=== PATIENT | male | born 1945 | race Caucasian/White ===

== ENCOUNTER 2017-12-29 11:56 | Observation (INO) ==
--- NOTE | 2017-12-29 12:17 | Emergency Department Note ---
Disposition Clinical Impression: Chest pain Qualifiers: Chest pain type: unspecified Qualified Code(s): R07.9 - Chest pain, unspecified Disposition: Admitted As Inpatient Condition: Good Time of Disposition: 15:29 Chest Pain HPI - General Chief Complaint: ED Chest Pain Stated Complaint: Chest Pain Time Seen by Provider: 12/29/17 12:16 Source: patient Mode of arrival: ambulatory Limitations: no limitations Vital Signs Reviewed: Yes Nursing Notes Reviewed: Yes - History of Present Illness HPI Narrative: Patient is a 72-year-old male with past medical history of previous MO, stent placement 1, hypertension, hyperlipidemia, diabetes, hiatal hernia. He presents today due to chest pain. He states that he started having chest pressure yesterday afternoon, described as a pressure that radiates to his back between his scapula, associated with nausea and sweating. The pain is not worse with exertion; however, he says that this pain with associated nausea is the same pain that he felt when he had his previous MO. Denies any shortness of breath. Denies any other vomiting, diarrhea, abdominal pain. He does have a hiatal hernia but he states that this pain feels different from previous hiatal hernia pain. Severity scale (1-10): 8 - Related Data Home Medications Medication Instructions Recorded Confirmed Aspirin [Lo-Dose Aspirin EC] 81 mg PO DAILY 12/29/17 12/29/17 Atorvastatin [Lipitor] 40 mg PO HS 12/29/17 12/29/17 Carvedilol 12.5 mg PO BID 12/29/17 12/29/17 Esomeprazole Magnesium [Nexium] 40 mg PO DAILY 12/29/17 12/29/17 Fenofibrate Nanocrystallized 48 mg PO DAILY 12/29/17 12/29/17 [Tricor] Lisinopril [Zestril] 5 mg PO DAILY 12/29/17 12/29/17 Metformin HCl [Glucophage] 1,000 mg PO BID 12/29/17 12/29/17 Metoclopramide [Reglan] 10 mg PO QIDAC 12/29/17 12/29/17 SitaGLIPtin [Januvia] 100 mg PO DAILY 12/29/17 12/29/17 Tamsulosin HCl [Flomax] 0.4 mg PO DAILY 12/29/17 12/29/17 glipiZIDE [Glucotrol] 5 mg PO DAILY 12/29/17 12/29/17 Allergies Allergy/AdvReac Type Severity Reaction Status Date / Time simvastatin Allergy Rash Verified 04/07/15 17:29 All systems ED: reviewed and negative except as stated. Constitutional: Denies: fever Cardiovascular: Reports: chest pain Respiratory: Denies: dyspnea Gastrointestinal: Reports: nausea. Denies: abdominal pain, vomiting, diarrhea Musculoskeletal: Reports: back pain Integumentary: Denies: rash Neurological: Denies: headache, weakness, numbness, paresthesias Chest Pain PMH - Past Medical History Medical history: Reports: diabetes, myocardial infarction, other Surgical history: Reports: non-contributory Psychiatric history: Reports: no psych history - Social History Smoking Status: Former smoker Alcohol use: Reports: none Drug use: Reports: none Physical Exam - General Limitations: no limitations General appearance: alert, in no apparent distress - Head Head exam: atraumatic, normocephalic, normal inspection - Eye Eye exam: Present: normal appearance, PERRL, EOMI - ENT ENT exam: normal exam, normal oropharynx, mucous membranes moist - Neck Neck exam: Present: normal inspection, full ROM, trachea midline - Chest Chest inspection: Present: normal inspection, symmetric chest wall rise. Absent : tenderness, rash - Respiratory Respiratory exam: Present: normal lung sounds bilaterally - Cardiovascular Cardiovascular exam: Present: regular rate, normal rhythm, normal heart sounds - Abdominal Exam Abdominal exam: Present: soft, Non-Tender. Absent: tenderness, distention, guarding, rebound, rigidity - Extremities Exam Extremities exam: Present: normal inspection, full ROM. Absent: tenderness, pedal edema - Neurological Exam Neurological exam: Present: alert, oriented X3 - Psychiatric Psychiatric exam: Present: normal affect, normal mood - Skin Skin exam: Present: warm, dry, intact, normal color Course Course Narrative: Vitals within normal limits on my exam. Physical exam shows no reproducible chest pain upon palpation, lungs were clear to auscultation. Patient did have some mild discomfort in epigastric region that he states that this pain with palpation is not the pain that he is feeling in his chest. Patient had EKG performed that showed evidence of old left bundle branch block and no acute ST changes. Troponin was negative. Chest x-ray was negative for any acute cardio pulmonary process. Patient was given aspirin 325, nitroglycerin. He states that his pain went from a 7-8 out of 10 down to a 5 out of 10. He did not want to take any additional nitroglycerin of the patient was given fentanyl for pain control. After discussing results and risk factors with the patient, he still has continued pain, HEART score is 5, I recommended that the patient be admitted for further care and ACS rule out. He was agreeable with this plan. Chest X-Ray 12/29/17 12:26 IMPRESSION: No acute cardiopulmonary disease D/ / Ziggy Jimenez MD / Ziggy Jimenez MD Interpreting Provider: Ziggy Jimenez MD Vital Signs Temperature 97.6 F 12/29/17 12:06 Pulse Rate 77 12/29/17 12:06 Respiratory Rate 16 12/29/17 12:06 Blood Pressure 131/70 12/29/17 12:06 O2 Sat by Pulse Oximetry 96 12/29/17 12:06 Temperature 97.6 F 12/29/17 12:06 Pulse Rate 63 12/29/17 15:05 Respiratory Rate 18 12/29/17 15:05 Blood Pressure 121/73 12/29/17 15:05 O2 Sat by Pulse Oximetry 96 12/29/17 15:05 Oxygen Delivery Oxygen Delivery Nasal Cannula Chest Pain - MDM Narrative Medical decision making narrative: Vitals within normal limits on my exam. Physical exam shows no reproducible chest pain upon palpation, lungs were clear to auscultation. Patient did have some mild discomfort in epigastric region that he states that this pain with palpation is not the pain that he is feeling in his chest. Patient had EKG performed that showed evidence of old left bundle branch block and no acute ST changes. Troponin was negative. Chest x-ray was negative for any acute cardio pulmonary process. Patient was given aspirin 325, nitroglycerin. He states that his pain went from a 7-8 out of 10 down to a 5 out of 10. He did not want to take any additional nitroglycerin of the patient was given fentanyl for pain control. After discussing results and risk factors with the patient, he still has continued pain, HEART score is 5, I recommended that the patient be admitted for further care and ACS rule out. He was agreeable with this plan. - Medical Records Medical records reviewed: Yes I reviewed the patient's medical records. - Lab Data Lab results reviewed: Yes I reviewed the patient's lab results. Result diagrams: 12/29/17 12:42 Lab Results 12/29/17 Range/Units 12:42 Sodium 137 (136-145) mEq/L Potassium 3.8 (3.5-5.1) mEq/L Chloride 105 (98-107) mEq/L Carbon Dioxide 23 (23-29) mEq/L BUN 15 (8-23) mg/dL Creatinine 0.98 (0.70-1.30) mg/dL Est GFR ( Amer) > 60 (> 60) Est GFR (Non-Af Amer) > 60 (> 60) BUN/Creatinine Ratio 15 (6-26) Glucose 132 H (70-105) mg/dL Calculated Osmolality 287 (280-300) Calcium 9.5 (8.6-10.3) mg/dL Troponin I < 0.03 (< 0.04) ng/mL - Radiology Data Radiology results reviewed: Yes I reviewed the patient's radiology results. Chest X-Ray 12/29/17 12:26 IMPRESSION: No acute cardiopulmonary disease D/ / Ziggy Jimenez MD / Ziggy Jimenez MD Interpreting Provider: Ziggy Jimenez MD - EKG Data EKG attestation: Yes I reviewed and interpreted this EKG. EKG results narrative: 12/29/2017 at 11:59. Normal sinus rhythm. Left bundle branch block that is old compared to previous EKG on 01/11/2013. No acute ST elevation or depression. Left axis deviation. Rate 79, WA 169, QRS 174, QTC 461. No acute ST elevation or depression. Heart Score - Score History: Moderately Suspicious EKG: Normal Age: Greater than 65 Risk Factors: Equal/Greater than 3 risk factor or history of atherosclerotic disease Troponin: Less than normal limit HEART Score Total: 5 S.B.A.R. - S.B.A.R. Situation: Demographics, MOA Background: Presenting Complaint, Relevant PMH, Meds, & Allergies Assessment: Vital Signs, Course and respsone to treatment, Exam Concerns, Patient/Family Expectation, Pertinant Lab Results Recommendation: Barrier(s) to disposition, Recommendation based on pending studies, treatments, or consults S.B.A.R. Report Given to: Dr. Allen
[2017-12-29] MEDS ORDERED: Nitroglycerin 0.4 MG TAB.SUBL SL ONE (12:26)
[2017-12-29] MEDS ORDERED: Aspirin 81 MG TAB.CHEW PO ONE (12:26)
[2017-12-29 13:28] LABS: BUN/Creatinine Ratio 15 (6-26); Blood Urea Nitrogen 15 mg/dL (8-23); Calcium 9.5 mg/dL (8.6-10.3); Carbon Dioxide 23 mEq/L (23-29); Chloride 105 mEq/L (98-107); Glucose 132 mg/dL (70-105); Osmolality,Calculated 287 (280-300); Potassium 3.8 mEq/L (3.5-5.1); Sodium 137 mEq/L (136-145); Troponin I < 0.03 ng/mL (< 0.04); eGFR For African Americans > 60 (> 60); eGFR For Non-African Americans > 60 (> 60)
[2017-12-29] MEDS ORDERED: *HR* FentaNYL (PF) 100 MCG/2 ML VIAL IVP ONE (15:21)
[2017-12-29] MEDS ORDERED: Naloxone 0.4 MG/ML INJ IVP PRN (17:29)
[2017-12-29] MEDS ORDERED: Dextrose Gel 15 GM/37.5 ML TUBE PO PRN ×2 (17:39)
[2017-12-29] MEDS ORDERED: *HR* Dextrose 50 % in Water (Syg) 50 ML SYRINGE IVP PRN (17:39)
[2017-12-29] MEDS ORDERED: D5% in Water 1,000 ML IVC PRN (17:39)
[2017-12-29] MEDS ORDERED: GI Cocktail 40 ML EACH PO ONE (17:44)
--- NOTE | 2017-12-29 17:45 | Emergency Department Note ---
Disposition Clinical Impression: Chest pain Qualifiers: Chest pain type: unspecified Qualified Code(s): R07.9 - Chest pain, unspecified Disposition: Admitted As Inpatient Condition: Good General Adult HPI - General Chief complaint: ED Chest Pain Stated complaint: Chest Pain Time Seen by Provider: 12/29/17 12:16 Source: patient Mode of arrival: ambulatory Limitations: no limitations - History of Present Illness Pain Scale: 8 - Related Data Home Medications Medication Instructions Recorded Confirmed Aspirin [Lo-Dose Aspirin EC] 81 mg PO DAILY 12/29/17 12/29/17 Atorvastatin [Lipitor] 40 mg PO HS 12/29/17 12/29/17 Carvedilol 12.5 mg PO BID 12/29/17 12/29/17 Esomeprazole Magnesium [Nexium] 40 mg PO DAILY 12/29/17 12/29/17 Fenofibrate Nanocrystallized 48 mg PO DAILY 12/29/17 12/29/17 [Tricor] Lisinopril [Zestril] 5 mg PO DAILY 12/29/17 12/29/17 Metformin HCl [Glucophage] 1,000 mg PO BID 12/29/17 12/29/17 Metoclopramide [Reglan] 10 mg PO QIDAC 12/29/17 12/29/17 SitaGLIPtin [Januvia] 100 mg PO DAILY 12/29/17 12/29/17 Tamsulosin HCl [Flomax] 0.4 mg PO DAILY 12/29/17 12/29/17 glipiZIDE [Glucotrol] 5 mg PO DAILY 12/29/17 12/29/17 Allergies Allergy/AdvReac Type Severity Reaction Status Date / Time simvastatin Allergy Rash Verified 04/07/15 17:29 Constitutional: Denies: fever Cardiovascular: Reports: chest pain Respiratory: Denies: dyspnea Gastrointestinal: Reports: nausea. Denies: abdominal pain, vomiting, diarrhea Musculoskeletal: Reports: back pain Integumentary: Denies: rash Neurological: Denies: headache, weakness, numbness, paresthesias Past Medical History - Past Medical History Medical history: Reports: diabetes, myocardial infarction, other Surgical history: Reports: non-contributory Psychiatric history: Reports: no psych history - Social History Smoking Status: Former smoker Smokeless Tobacco Status: No Alcohol use: Reports: none Drug use: Reports: none Physical Exam - General Limitations: no limitations General appearance: alert, in no apparent distress Course Vital Signs Temperature 97.6 F 12/29/17 12:06 Pulse Rate 77 12/29/17 12:06 Respiratory Rate 16 12/29/17 12:06 Blood Pressure 131/70 12/29/17 12:06 O2 Sat by Pulse Oximetry 96 12/29/17 12:06 Temperature 97.5 F L 12/29/17 15:59 Pulse Rate 66 12/29/17 15:59 Respiratory Rate 16 12/29/17 15:59 Blood Pressure 152/81 12/29/17 15:59 O2 Sat by Pulse Oximetry 97 12/29/17 15:59 Oxygen Delivery Oxygen Delivery Nasal Cannula Medical Decision Making - Lab Data Result diagrams: 12/29/17 12:42 Lab Results 12/29/17 Range/Units 12:42 Sodium 137 (136-145) mEq/L Potassium 3.8 (3.5-5.1) mEq/L Chloride 105 (98-107) mEq/L Carbon Dioxide 23 (23-29) mEq/L BUN 15 (8-23) mg/dL Creatinine 0.98 (0.70-1.30) mg/dL Est GFR ( Amer) > 60 (> 60) Est GFR (Non-Af Amer) > 60 (> 60) BUN/Creatinine Ratio 15 (6-26) Glucose 132 H (70-105) mg/dL Calculated Osmolality 287 (280-300) Calcium 9.5 (8.6-10.3) mg/dL Troponin I < 0.03 (< 0.04) ng/mL Attestation Statement - Attestation Attestation: I examined this patient and my medical decision-making was reviewed with the Resident Physician. I agree with the documented findings, disposition and treatment plan as described except to the extent set forth below. HEART score 5. Pain improved but not resolved at the time of my eval, repeat EKG unchanged. Troponin negative in ED. Admit for obs, cardio eval.
[2017-12-29] MEDS ORDERED: Ondansetron 4 MG/2 ML VIAL IVP PRN (17:46)
--- NOTE | 2017-12-29 18:20 | Internal Med History&Physical ---
Date of Encounter: 12/29/17 Time of Encounter: 16:00 Internal Medicine - H&P: HPI Chief complaint: CP Admitted From: Emergency Dept Plans for Post Hospital Care: Home History of present illness: Mr. Patel is a 72 year old male w/PMH of diabetes controlled with oral antihyperglycemic medications, previous myocardial infarction in 2007 with one stent placed, HTN, HLD, and GERD presents from the ED with chief complaint of CP that began yesterday afternoon as constant chest pain that spread across his entire chest and radiated to his back shoulder blades and became worse today. Accompanied by N/V. Nitro x3 and 324 mg aspirin helped sx and reduced pain from 10/10 to 5/10. No alleviating or aggravating factors. Similar sx in 2007 with previous IL which required one stent. Denies recent illness, fever, chills, cough, chest congestion, SOB, changes in vision, unusual bleeding, diarrhea, constipation, palpitations, abdominal pain, numbness, tingling, dizziness, lightheadedness, presyncope, or syncope. Past Med Surg Social Fam HX - Past Medical History Source: patient, old records reviewed Medical history: diabetes, GERD, hyperlipidemia, hypertension, myocardial infarction (2007 w/ stent), other Psychiatric history: no psych history - Past Surgical History Surgical History: non-contributory - Social History Smoking Status: Former smoker Packs per day: 3 PPD - Reports quitting 30 years ago Smokeless Tobacco Status: No Alcohol use: none Drug use: none Current living situation: Home, With Family Activity Level: Independent ambulation Recent Out of Country Travel Within the Last 8 Weeks: No Exposure or Possible Exposure to Illness During Travel: No - Family History Mother Race: Family Member Ethnicity: Non- Living Status: Age at : 81 Cause of : CHF Hx Family Cardiac Disorders: Yes (CHF) Hx Family Endocrine Disorder: Yes (DM) Father Race: Family Member Ethnicity: Non- Living Status: Age at : 83 Cause of : Parkinson's complications Hx Family Neuromuscular Disorders: Yes (Parkinson's) Brother History Unknown: Yes Race: Family Member Ethnicity: Non- Living Status: Still Living Sister Race: Family Member Ethnicity: Non- Living Status: Still Living Hx Family Cardiac Disorders: Yes (CAD) Hx Family Endocrine Disorder: Yes (DM) Internal Medicine - H&P: Meds Aspirin [Lo-Dose Aspirin EC] 81 mg PO DAILY 12/29/17 [History] Atorvastatin [Lipitor] 40 mg PO HS 12/29/17 [History] Carvedilol 12.5 mg PO BID 12/29/17 [History] Esomeprazole Magnesium [Nexium] 40 mg PO DAILY 12/29/17 [History] Fenofibrate Nanocrystallized [Tricor] 48 mg PO DAILY 12/29/17 [History] Lisinopril [Zestril] 5 mg PO DAILY 12/29/17 [History] Metformin HCl [Glucophage] 1,000 mg PO BID 12/29/17 [History] Metoclopramide [Reglan] 10 mg PO QIDAC 12/29/17 [History] SitaGLIPtin [Januvia] 100 mg PO DAILY 12/29/17 [History] Tamsulosin HCl [Flomax] 0.4 mg PO DAILY 12/29/17 [History] glipiZIDE [Glucotrol] 5 mg PO DAILY 12/29/17 [History] 3 Allergy/AdvReac Type Severity Reaction Status Date / Time simvastatin Allergy Rash Verified 04/07/15 17:29 All Systems PM: A 10-system review of systems was performed and is negative for pertinent findings except as documented above in the HPI. - Constitutional Constitutional: no chills, no fever(s), no night sweats - EENT Eyes: no change in vision, no discharge, no pain, no photophobia Ears: no ear discharge, no ear pain, no tinnitus Nose, mouth and throat: no dysphagia, no nasal discharge, no neck pain, no sore throat - Breasts Breasts: as per HPI - Cardiovascular Cardiovascular ROS IM: as per HPI, chest pain, no diaphoresis, no dyspnea, no lightheadedness, no palpitations, no syncope - Respiratory Respiratory: no cough, no dyspnea, no wheezing, no excessive phlegm production - Gastrointestinal Gastrointestinal: as per HPI, nausea, vomiting, no abdominal pain, no diarrhea, no hematemesis, no hematochezia, no melena - Genitourinary Genitourinary ROS male: as per HPI - Musculoskeletal Musculoskeletal ROS IM: no numbness, no tingling - Integumentary Integumentary IM: no rash, no unusual bruising - Neurological Neurological ROS: no confusion, no convulsions, no focal weakness, no numbness, no tingling, no tremor(s) - Psychiatric Psychiatric: as per HPI - Endocrine Endocrine IM: as per HPI - Hematologic/Lymphatic Hematologic/Lymphatic: no easy bruising - Allergic/Immunologic Allergic/Immunologic: as per HPI - Constitutional Vitals: Temp Pulse Resp BP Pulse Ox 97.5 F L 66 16 152/81 97 12/29/17 15:59 12/29/17 15:59 12/29/17 15:59 12/29/17 15:59 12/29/17 15:59 General appearance: Present: cooperative, mild distress (Chest pain), A&O X 3, pleasant, obese, answers questions appropriately - Head Head exam: Present: atraumatic, normocephalic - Eye Eye exam: Present: PERRL, conjuntiva pink, sclera anicteric Pupils: Present: PERRL - ENT ENT exam: Present: normal exam - Neck Neck exam general surgery: Present: normal inspection, supple, trachea midline. Absent: lymphadenopathy - Respiratory Respiratory exam: Present: CTAB. Absent: accessory muscle use, rales, rhonchi, wheezes - Cardiovascular Cardiovascular exam: Present: RRR, +S1, +S2. Absent: diastolic murmur, gallop, rubs, systolic murmur - GI/Abdominal GI/Abdominal exam: Present: normal bowel sounds, soft, no peritoneal signs. Absent: distended, tenderness - Rectal Rectal exam: Present: deferred - Additional comments: exam deferred. - Extremities Exam Extremities exam: Present: warm, radial pulses palpable and symmetrical. Absent : calf tenderness, cyanotic, pedal edema - Back Exam Back exam: Present: normal inspection - Neurological Exam Neurological exam: Present: CN II-XII intact, oriented X3, no focal deficits. Absent: pronater drift, facial droop, speech deficit - Psychiatric Psychiatric exam: Present: normal affect, normal mood - Skin Skin exam: Present: dry, intact Internal Med - H&P Results - Labs CBC & Chem 7: 12/29/17 12:42 - Diagnostic Studies Chest x-ray Additional comments: Impressions Chest X-Ray 12/29/17 12:26 IMPRESSION: No acute cardiopulmonary disease D/ / Ziggy Jimenez MD / Ziggy Jimenez MD Interpreting Provider: Ziggy Jimenez MD - Assessment and plan (1) Chest pain Current Visit: Yes Status: Acute Assessment and plan: Acute CP that began yesterday afternoon and became worse today. Describes pain as constant across chest w/radiation to back shoulder blades accompanied by nausea and vomiting. Original pain 10/10 reduced to 5/10 after nitroglycerin 3 and 325 mg aspirin. Previous IL in 2007 w/one stent. Initial troponin <0.03. Trend x2. Lipitor 80 mg now followed by regular home dose of 40 mg daily tomorrow. Aspirin 81 mg daily starting tomorrow. NPO at midnight for a.m. stress test if troponins remain WNL. EKG today shows sinus rhythm with frequent ventricular premature complexes, marked left axis deviation, and LBBB. Cardiology consult ordered and discussed w/Dr. Suggs d/t pts. hx and LBBB and I appreciate the consult. Continuous cardiac telemetry. Supplemental O2 w/ titration and SpO2 monitoring. Continue pts. HTN and HLD medications. Pt. discussed w/Dr. Allen who agrees w/plan of care. Pt. is high risk for further morbidity and cardiac event based on previous hx of IL/stent, current sx and CP w/o resolve; and risk factors of HTN, HLD, DM, and previous long-term tobacco abuse. Observation. Qualifiers: Chest pain type: other chest pain Qualified Code(s): R07.89 - Other chest pain; R07.8 - Other chest pain (2) HTN (hypertension) Current Visit: Yes Status: Chronic Assessment and plan: Hx of chronic HTN. Monitor pt. and VS. Continue pts. Lisinopril and Carvedilol. Qualifiers: Hypertension type: essential hypertension Qualified Code(s): I10 - Essential (primary) hypertension (3) HLD (hyperlipidemia) Current Visit: Yes Status: Chronic Assessment and plan: Hx of chronic HLD. Lipid panel in a.m. labs. Continue pts. Tricor and Lipitor. Qualifiers: Hyperlipidemia type: pure hypercholesterolemia Qualified Code(s): E78.00 - Pure hypercholesterolemia, unspecified; E78.0 - Pure hypercholesterolemia (4) GERD (gastroesophageal reflux disease) Current Visit: Yes Status: Chronic Assessment and plan: Hx of chronic GERD. Hold pts. home meds and administer IVP Protonix 40 mg BID. GI cocktail once. Zofran IVP 4 mg Q6HR PRN for N/V. Qualifiers: Esophagitis presence: esophagitis presence not specified Qualified Code(s) : K21.9 - Gastro-esophageal reflux disease without esophagitis (5) Diabetes Current Visit: Yes Status: Chronic Assessment and plan: Hx of chronic diabetes controlled with oral anti-hyperglycemic medications. Will hold oral medications and administer low-dose correction insulin sliding scale with hypoglycemic protocol. A1c in a.m. labs. BG checks before meals at bedtime. Qualifiers: Diabetes mellitus type: type 2 Diabetes mellitus intermediate insulin use: without intermediate use Diabetes mellitus complication status: with unspecified complications Qualified Code(s): E11.8 - Type 2 diabetes mellitus with unspecified complications (6) DVT prophylaxis Current Visit: Yes Status: Acute Assessment and plan: Heparin 5,000 units SQ Q8HR for DVT prophylaxis. Monitor pt. for signs of bleeding. - Time Spent With Patient Total time spent is greater than 50% in coordination of care (as documented) at patient's floor/unit and/or counseling patient: Greater than 35 minutes
[2017-12-29] MEDS: Pantoprazole 40 MG VIAL IVP SCH (18:22)
--- NOTE | 2017-12-29 19:04 | Event Note ---
Date of Encounter: 12/29/17 Time of Encounter: 18:00 Discussed with KATELIN and agree with assessment and plan Patient is a 72-year-old male with past medical history CAD with prior stent in 2007 who presents to the ER due to chest pain. On physical examination, cardiovascular exam revealed regular rate and rhythm with no murmurs rubs or gallops and generally patient in mild acute distress 1. Chest pain ACS rule out with following cardiac biomarkers and monitor on telemetry Nuclear medicine stress test also ordered and cardiology was consulted due to LBBB on EKG
[2017-12-29] MEDS: traMADol 50 MG TABLET PO PRN (19:24)
[2017-12-29] MEDS: Insulin LISPRO 300 UNITS/3 ML VIAL SQ SCH (20:21)
[2017-12-29] MEDS: Nitroglycerin 0.4 MG TAB.SUBL SL PRN ×2 (22:03→22:09)
[2017-12-29] MEDS: *HR* Heparin 5,000 UNIT/ML VIAL SQ SCH (22:04)
[2017-12-30 01:16] LABS: Basophils % 0.5 %; Eosinophils # 0.1 K/mcL (0.0-0.6); Eosinophils % 1.1 %; Hematocrit 38.9 % (37.5-50.1); Hemoglobin 12.8 g/dL (12.9-16.9); Immature Granulocytes % 0.3 % (0-4); Lymphocytes # 2.1 K/mcL (0.6-4.6); Lymphocytes % 23.5 %; Mean Corpuscular HGB Conc 32.9 g/dL (31.6-35.5); Monocytes # 0.7 K/mcL (0.0-1.3); Monocytes % 7.9 %; Neutrophils # 5.8 K/mcL (1.6-8.9); Platelet Count 281 K/mcL (140-400); Red Blood Count 4.42 M/mcL (4.19-5.50); Red Cell Distribution Width 13.7 % (11.5-14.5); Segmented Neutrophils % 66.7 %
[2017-12-30 01:36] LABS: Alanine Aminotransferase 12 Units/L (7-52); Albumin 3.8 g/dL (3.5-5.7); Albumin/Globulin Ratio 1.5 (1.1-2.2); Alkaline Phosphatase 77 Units/L (34-104); Aspartate Amino Transferase 10 Units/L (13-39); BUN/Creatinine Ratio 14 (6-26); Bilirubin,Total 0.6 mg/dL (0.3-1.0); Blood Urea Nitrogen 14 mg/dL (8-23); Calcium 8.9 mg/dL (8.6-10.3); Carbon Dioxide 22 mEq/L (23-29); Chloride 102 mEq/L (98-107); Chol/HDL Ratio 3.1 (0-4.9); Cholesterol 122 mg/dL (< 200); Globulin 2.6 g/dL (2.4-3.5); Glucose 106 mg/dL (70-105); HDL Cholesterol 39 mg/dL (40-59); LDL Cholesterol,Calculated 56 mg/dL (0-99); Magnesium 1.9 mg/dL (1.6-2.6); Osmolality,Calculated 283 (280-300); Potassium 3.9 mEq/L (3.5-5.1); Sodium 136 mEq/L (136-145); Total Protein 6.4 g/dL (6.4-8.9); Triglycerides 137 mg/dL (< 150); eGFR For African Americans > 60 (> 60); eGFR For Non-African Americans > 60 (> 60)
[2017-12-30] MEDS ORDERED: Regadenoson 0.4 MG/5 ML SYRINGE IVP ONE (05:38)
[2017-12-30] MEDS: *HR* Heparin 5,000 UNIT/ML VIAL SQ SCH ×3 (06:02→20:55)
[2017-12-30] MEDS: Pantoprazole 40 MG VIAL IVP SCH ×2 (06:03→17:33)
[2017-12-30 08:40] LABS: Estimated Average Glucose 151 mg/dl; Hemoglobin A1C 6.9 %
[2017-12-30] MEDS: Insulin LISPRO 300 UNITS/3 ML VIAL SQ SCH ×4 (09:23→20:55)
[2017-12-30] MEDS: traMADol 50 MG TABLET PO PRN (09:43)
[2017-12-30] MEDS: Aspirin Enteric Coated 81 MG Tablet PO SCH (09:43)
[2017-12-30] MEDS: Fenofibrate 54 MG TABLET PO SCH (09:43)
--- NOTE | 2017-12-30 11:15 | Cardiology Consult Note ---
Date of Encounter: 12/30/17 Time of Encounter: 07:30 Assessment and Plan (1) Chest pain Current Visit: Yes Status: Acute Per cardiology: -Admitted with chest pain, occured at rest. Denies exertional symptoms. -Reports pain has been constant since Wednesday. Denies aggravating or alleviating factors. -Somewhat reproduceable with palpation. Different from previous [place] symptoms. -Troponins negative x3. -ECG with SR, LBBB (known). -Stress today without evidence of ischemia or infarct. Gated EF 41%, LV dilated. -TTE 2012 with LVEF 50%, mildly dilated LV, mild DD, mild AR, mild MR. -[facility] 2012 with patent LAD stent, 30% left circumflex, 30% RCA. -ON asa, statin, beta rich. -Will check TTE. -Will add imdur. Qualifiers: Chest pain type: other chest pain Qualified Code(s): R07.89 - Other chest pain; R07.8 - Other chest pain Discussion w patient/family: The assessment and plan as outlined above was discussed with the patient and/or family members who expressed understanding and agreement. All questions were answered. Thank you for involving us in the care of your patient. Please call with any questions. Discussed and reviewed with . History of Present Illness Consult date: 12/29/17 Requesting physician: Tera Tirado Consult reason: chest pain Chief complaint: chest pain History of present illness: Mr. Patel is a 72 year old male with a relevant past medical history of DM, HLD , CAD s/p [place] with PCI 2007, GERD, gastroperesis. Patient presented to [facility] with complaints of chest pain. Patient reports pain while sitting in car driving. Reports mid sternal pain radiation into back. Reports previous [place] symptoms of left arm pain, nausea, and vomiting. Denies left arm pain, nausea, or vomiting. Reports pain has been constant since Wednesday afternoon. Denies aggravating or alleviating factors. Reports continued chest pain. Denies increased shortness of breath or increased fatigue. Past Med Surg Social Fam HX - Past Medical History Attestation: Yes The following information was validated with the patient. Source: patient, old records reviewed Medical history: coronary artery disease, diabetes, GERD, hyperlipidemia, hypertension, myocardial infarction (2007 w/ stent), other Psychiatric history: no psych history - Past Surgical History Surgical History: non-contributory - Social History Smoking Status: Former smoker Packs per day: 3 PPD - Reports quitting 30 years ago Smokeless Tobacco Status: No Alcohol use: none Drug use: none - Family History Mother Race: Family Member Ethnicity: Non- Living Status: Age at : 81 Cause of : CHF Hx Family Cardiac Disorders: Yes (CHF) Hx Family Endocrine Disorder: Yes (DM) Father Race: Family Member Ethnicity: Non- Living Status: Age at : 83 Cause of : Parkinson's complications Hx Family Neuromuscular Disorders: Yes (Parkinson's) Brother History Unknown: Yes Race: Family Member Ethnicity: Non- Living Status: Still Living Sister Race: Family Member Ethnicity: Non- Living Status: Still Living Hx Family Cardiac Disorders: Yes (CAD) Hx Family Endocrine Disorder: Yes (DM) Medications and Allergies Aspirin [Lo-Dose Aspirin EC] 81 mg PO DAILY 12/29/17 [History] Atorvastatin [Lipitor] 40 mg PO HS 12/29/17 [History] Carvedilol 12.5 mg PO BID 12/29/17 [History] Esomeprazole Magnesium [Nexium] 40 mg PO DAILY 12/29/17 [History] Fenofibrate Nanocrystallized [Tricor] 48 mg PO DAILY 12/29/17 [History] Lisinopril [Zestril] 5 mg PO DAILY 12/29/17 [History] Metformin HCl [Glucophage] 1,000 mg PO BID 12/29/17 [History] Metoclopramide [Reglan] 10 mg PO QIDAC 12/29/17 [History] SitaGLIPtin [Januvia] 100 mg PO DAILY 12/29/17 [History] Tamsulosin HCl [Flomax] 0.4 mg PO DAILY 12/29/17 [History] glipiZIDE [Glucotrol] 5 mg PO DAILY 12/29/17 [History] 3 Allergy/AdvReac Type Severity Reaction Status Date / Time simvastatin Allergy Rash Verified 04/07/15 17:29 All Systems Review: The remainder of the systems were reviewed and are negative - Cardiovascular Cardiovascular: as per HPI, chest pain at rest Physical Examination Vital Signs, Last 4 Hours Temp Pulse Resp BP Pulse Ox 12/30/17 10:56 98.1 F 64 15 115/66 89 General: Conversant, No Apparent Distress HEENT: Atraumatic, Normocephaly, Mucus Membranes Moist Neck: No JVD, Normal carotid pulses Cardiac: Reg Rate and Rhythm, Normal S1 and S2, No Murmur Lungs: Normal Breath Sounds, No Wheeze, Rales, Rhonchi Neuro: Alert and responsive, No focal deficits noted Abdomen: Soft, Non-Tender Skin: No rashes noted on visualized skin Musculoskeletal: Other (Chest pain with palpation. ) Extremities: No Clubbing, No Cyanosis, No Edema, Normal Pulses Results 12/30/17 00:50 12/30/17 00:50 Lab Results Impressions Chest X-Ray 12/29/17 12:26 IMPRESSION: No acute cardiopulmonary disease D/ / Ziggy Jimenez MD / Ziggy Jimenez MD Interpreting Provider: Ziggy Jimenez MD Active Medications Acetaminophen (Tylenol) 650 mg PO Q6HR PRN PRN Reason: Mild Pain/Fever Stop: 06/30/18 17:30 Aspirin (Aspirin Ec) 81 mg PO DAILY [facility] Stop: 07/01/18 09:01 Last Admin: 12/30/17 09:43 Dose: 81 mg Atorvastatin Calcium (Lipitor) 40 mg PO HS [facility] Stop: 07/01/18 21:01 Carvedilol (Coreg) 12.5 mg PO BIDWM [facility] Stop: 06/30/18 19:01 Last Admin: 12/30/17 09:43 Dose: 12.5 mg Dextrose/Water (Dextrose 50% (Syg)) 25 ml IVP AD PRN PRN Reason: Hypoglycemia Stop: 06/30/18 17:40 Fenofibrate (Tricor) 54 mg PO DAILY [facility] Stop: 07/01/18 09:01 Last Admin: 12/30/17 09:43 Dose: 54 mg Glucagon (Glucagen) 1 mg IM ONCE PRN PRN Reason: Hypoglycemia Stop: 06/30/18 17:40 Glucose (Gluctose) 15 gm PO ONCE PRN PRN Reason: Hypoglycemia Stop: 06/30/18 17:40 Glucose (Gluctose) 30 gm PO ONCE PRN PRN Reason: Hypoglycemia Stop: 06/30/18 17:40 Heparin Sodium (Porcine) (Heparin) 5,000 unit SQ Q8HCO [facility] Stop: 06/30/18 22:01 Last Admin: 12/30/17 06:02 Dose: 5,000 unit Dextrose (Dextrose 5%) 1,000 mls @ 100 mls/hr IVC .Q10H PRN PRN Reason: HYPOGLYCEMIA Stop: 06/30/18 17:40 Insulin Human Lispro (Humalog) 0 units SQ TIDAC [facility] PRN Reason: Protocol Stop: 07/01/18 07:31 Last Admin: 12/30/17 09:23 Dose: Not Given Insulin Human Lispro (Humalog) 0 units SQ HS [facility] PRN Reason: Protocol Stop: 06/30/18 21:01 Last Admin: 12/29/17 20:21 Dose: Not Given Lisinopril (Zestril) 5 mg PO DAILY [facility] PRN Reason: Protocol Stop: 07/01/18 09:01 Last Admin: 12/30/17 09:42 Dose: 5 mg Naloxone HCl (Narcan) 0.4 mg IVP Q2MIN PRN PRN Reason: SEE COMMENTS Stop: 06/30/18 17:30 Nitroglycerin (Nitroglycerin) 0.4 mg SL Q5MIN PRN PRN Reason: Chest Pain Stop: 06/30/18 17:44 Last Admin: 12/29/17 22:09 Dose: 0.4 mg Ondansetron HCl (Zofran) 4 mg IVP Q6HR PRN; Protocol PRN Reason: Nausea And Vomiting Stop: 06/30/18 17:47 Last Admin: 12/29/17 18:22 Dose: 4 mg Pantoprazole Sodium (Protonix) 40 mg IVP Q12HR [facility] Stop: 06/30/18 18:01 Last Admin: 12/30/17 06:03 Dose: 40 mg Tamsulosin HCl (Flomax) 0.4 mg PO DAILY [facility] PRN Reason: Protocol Stop: 07/01/18 09:01 Last Admin: 12/30/17 09:42 Dose: 0.4 mg Tramadol HCl (Ultram) 50 mg PO TID PRN PRN Reason: Moderate Pain Stop: 06/30/18 18:02 Last Admin: 12/30/17 09:43 Dose: 50 mg Laboratory Tests 0512/29/17 12/30/17 12:42 18:28 00:50 Hgb Creatinine Troponin I < 0.03 < 0.03 < 0.03 12/30/17 12/30/17 00:50 00:50 Hgb 12.8 L Creatinine 1.02 Troponin I - Imaging and Cardiology Chest Xray: report reviewed Stress Test: report reviewed Echo: pending, report reviewed Cardiac cath: report reviewed - EKG Interpretation EKG results cardiology: personally reviewed (ECG with SR, LBBB.), other ( Telemetry reviewed with average HR previous 12 hours noted to be 62, SR. PVCs and PACs noted.) Consult Discharge Plan - Plan Referrals: Debbie May MD [Primary Care Provider] -
[2017-12-30] MEDS: Isosorbide MONOnitrate (24 HR) 30 MG TAB.ER.24H PO SCH (13:36)
--- NOTE | 2017-12-30 15:18 | Electrocardiograph Report ---
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
--- NOTE | 2017-12-30 15:18 | Electrocardiograph Report ---
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
--- NOTE | 2017-12-30 15:25 | Electrocardiograph Report ---
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
--- NOTE | 2017-12-30 19:02 | Internal Med Progress Note ---
Date of Encounter: 12/30/17 Time of Encounter: 12:00 - Assessment and plan (1) Chest pain Current Visit: Yes Status: Acute Assessment and plan: Patient has not acute chest pain which was reduced after receiving 3 nitroglycerin and aspirin he had a previous SD in 2007 with one stent. Patient did undergo a nuclear cardiac stress test which was negative for any ischemia or infarct. He was seen by cardiology recommending cardiac echo and if EF has significant changes recommending left heart catheter. Awaiting results of cardiac echo. Did discuss this with the family and patient to verbalized understanding Continuous cardiac monitoring Glycerin as needed for chest pain Continue with aspirin beta rich and statin Qualifiers: Chest pain type: other chest pain Qualified Code(s): R07.89 - Other chest pain; R07.8 - Other chest pain (2) HTN (hypertension) Current Visit: Yes Status: Chronic Assessment and plan: Presently controlled continue with lisinopril and carvedilol Qualifiers: Hypertension type: essential hypertension Qualified Code(s): I10 - Essential (primary) hypertension (3) HLD (hyperlipidemia) Current Visit: Yes Status: Chronic Assessment and plan: Continue with TriCor and Lipitor Qualifiers: Hyperlipidemia type: pure hypercholesterolemia Qualified Code(s): E78.00 - Pure hypercholesterolemia, unspecified; E78.0 - Pure hypercholesterolemia (4) GERD (gastroesophageal reflux disease) Current Visit: Yes Status: Chronic Assessment and plan: Continue with Protonix Qualifiers: Esophagitis presence: esophagitis presence not specified Qualified Code(s) : K21.9 - Gastro-esophageal reflux disease without esophagitis (5) DVT prophylaxis Current Visit: Yes Status: Acute Assessment and plan: Heparin subcutaneous (6) Diabetes Current Visit: Yes Status: Chronic Assessment and plan: Continue Accu-Cheks before meals at bedtime with sliding scale insulin hold oral medications-hemoglobin A1c 6.9 today Qualifiers: Diabetes mellitus type: type 2 Diabetes mellitus mcc insulin use: without mcc use Diabetes mellitus complication status: with unspecified complications Qualified Code(s): E11.8 - Type 2 diabetes mellitus with unspecified complications - Time Spent With Patient Total time spent is greater than 50% in coordination of care (as documented) at patient's floor/unit and/or counseling patient: - Subjective Interval history: This patient is new to me I did review medical records. I did evaluate patient at bedside. Patient presently denies any chest pain or shortness of breath. He did undergo a nuclear cardiac stress test today. Tolerated procedure well perfusion imaging was negative for ischemia or infarct. Patient was seen by cardiology recommending cardiac echo to verify EF is severe changes cardiology recommend left heart catheter. I did discuss this with the patient and family who are at bedside -verbalized understanding - Constitutional Vitals: Temp Pulse Resp BP Pulse Ox 98.4 F 59 15 108/55 89 12/30/17 15:02 12/30/17 15:02 12/30/17 15:02 12/30/17 15:02 12/30/17 15:02 General appearance: Present: cooperative, mild distress (Chest pain), A&O X 3, pleasant, obese, answers questions appropriately - Head Head exam: Present: atraumatic, normocephalic - Eye Eye exam: Present: PERRL, conjuntiva pink, sclera anicteric Pupils: Present: PERRL - Neck Neck exam general surgery: Present: supple, trachea midline. Absent: lymphadenopathy - Respiratory Respiratory exam: Present: CTAB. Absent: accessory muscle use, rales, rhonchi, wheezes - Cardiovascular Cardiovascular exam: Present: RRR, +S1, +S2. Absent: diastolic murmur, gallop, rubs, systolic murmur - GI/Abdominal GI/Abdominal exam: Present: normal bowel sounds, soft, no peritoneal signs. Absent: distended, tenderness - Extremities Exam Extremities exam: Present: warm, radial pulses palpable and symmetrical. Absent : calf tenderness, cyanotic, pedal edema - Neurological Exam Neurological exam: Present: CN II-XII intact, oriented X3, no focal deficits. Absent: pronater drift, facial droop, speech deficit - Skin Skin exam: Present: dry, intact Internal Medicine: Result - Labs CBC & Chem 7: 12/30/17 00:50 12/30/17 00:50 Labs: Short CBC 12/30/17 Range/Units 00:50 WBC 8.7 (4.3-11.1) K/mcL Hgb 12.8 L (12.9-16.9) g/dL Hct 38.9 (37.5-50.1) % Plt Count 281 (140-400) K/mcL Neutrophils # 5.8 (1.6-8.9) K/mcL BMP 12/30/17 00:50 Sodium 136 Potassium 3.9 Chloride 102 Carbon Dioxide 22 L BUN 14 Creatinine 1.02 Glucose 106 H Calcium 8.9 Cardiac Enzymes 12/29/17 12/30/17 Range/Units 18:28 00:50 Troponin I < 0.03 < 0.03 (< 0.04) ng/mL Liver Function 12/30/17 Range/Units 00:50 Total Bilirubin 0.6 (0.3-1.0) mg/dL AST 10 L (13-39) Units/L ALT 12 (7-52) Units/L Alkaline Phosphatase 77 (34-104) Units/L Albumin 3.8 (3.5-5.7) g/dL Consult Discharge Plan - Plan Referrals: Debbie May MD [Primary Care Provider] -
[2017-12-30] MEDS: Acetaminophen 325 MG TABLET PO PRN (21:00)
[2017-12-31 04:18] LABS: Basophils # 0.1 K/mcL (0.0-0.2); Basophils % 0.6 %; Eosinophils # 0.2 K/mcL (0.0-0.6); Eosinophils % 2.4 %; Hematocrit 36.5 % (37.5-50.1); Hemoglobin 12.5 g/dL (12.9-16.9); Immature Granulocytes % 0.3 % (0-4); Lymphocytes # 2.1 K/mcL (0.6-4.6); Lymphocytes % 22.4 %; Mean Corpuscular HGB Conc 34.2 g/dL (31.6-35.5); Mean Corpuscular Hemoglobin 30.4 pg (28.0-33.3); Mean Corpuscular Volume 88.8 fL (83.0-100.0); Mean Platelet Volume 10.1 fL (9.4-12.4); Monocytes # 0.7 K/mcL (0.0-1.3); Monocytes % 7.7 %; Neutrophils # 6.2 K/mcL (1.6-8.9); Platelet Count 265 K/mcL (140-400); Red Blood Count 4.11 M/mcL (4.19-5.50); Red Cell Distribution Width 13.7 % (11.5-14.5); Segmented Neutrophils % 66.6 %
[2017-12-31 04:33] LABS: Alanine Aminotransferase 10 Units/L (7-52); Albumin 3.4 g/dL (3.5-5.7); Albumin/Globulin Ratio 1.4 (1.1-2.2); Alkaline Phosphatase 73 Units/L (34-104); Aspartate Amino Transferase 9 Units/L (13-39); BUN/Creatinine Ratio 15 (6-26); Bilirubin,Total 0.4 mg/dL (0.3-1.0); Blood Urea Nitrogen 16 mg/dL (8-23); Calcium 8.7 mg/dL (8.6-10.3); Carbon Dioxide 27 mEq/L (23-29); Chloride 104 mEq/L (98-107); Globulin 2.4 g/dL (2.4-3.5); Glucose 147 mg/dL (70-105); Osmolality,Calculated 288 (280-300); Potassium 3.8 mEq/L (3.5-5.1); Sodium 137 mEq/L (136-145); Total Protein 5.8 g/dL (6.4-8.9); eGFR For African Americans > 60 (> 60); eGFR For Non-African Americans > 60 (> 60)
[2017-12-31] MEDS: Pantoprazole 40 MG VIAL IVP SCH (06:25)
[2017-12-31] MEDS: *HR* Heparin 5,000 UNIT/ML VIAL SQ SCH (06:25)
[2017-12-31] MEDS: Acetaminophen 325 MG TABLET PO PRN (08:04)
[2017-12-31] MEDS: Isosorbide MONOnitrate (24 HR) 30 MG TAB.ER.24H PO SCH (08:05)
[2017-12-31] MEDS: Aspirin Enteric Coated 81 MG Tablet PO SCH (08:05)
[2017-12-31] MEDS: Fenofibrate 54 MG TABLET PO SCH (08:05)
[2017-12-31] MEDS: Insulin LISPRO 300 UNITS/3 ML VIAL SQ SCH ×2 (08:06→11:36)
[2017-12-31 11:23] VITALS: BP 117/55
--- NOTE | 2017-12-31 12:22 | Cardiology Progress Note ---
Date of Encounter: 12/31/17 Time of Encounter: 11:30 Assessment and Plan (1) Chest pain Current Visit: Yes Status: Acute Per cardiology: -Admitted with chest pain, occured at rest. Denies exertional symptoms. -Reports pain has been constant since Wednesday. States pain somewhat worse with position change. -Somewhat reproduceable with palpation. Different from previous [place] symptoms. -Troponins negative x3. -ECG with SR, LBBB (known). -Stress without evidence of ischemia or infarct. Gated EF 41%, LV dilated. -TTE 2012 with LVEF 50%, mildly dilated LV, mild DD, mild AR, mild MR. -[facility] 2012 with patent LAD stent, 30% left circumflex, 30% RCA. -TTE with LVEF 45%, global hypokinesis. On BB and ARB. -ON asa, statin, beta rich, imdur. -Patient reports pain much improved today. Patient wants to go home. TTE with mild reduction with LV systolic function. Has ruled out for [place]. Discussed and reviewed with , cardiology will sign off and will follow in [facility] setting. FOllow up set. -Recommend patient return to ER for worsening symptoms. Patient and family states understanding. Qualifiers: Chest pain type: other chest pain Qualified Code(s): R07.89 - Other chest pain; R07.8 - Other chest pain Discussion w patient/family: The assessment and plan as outlined above was discussed with the patient and/or family members who expressed understanding and agreement. All questions were answered. Thank you for involving us in the care of your patient. Please call with any questions. Discussed and reviewed with . Subjective Principal diagnosis: chest pain Interval history: Patient reports chest pain is much improved and he is wanting to go home. Objective Vital Signs, Last 4 Hours Temp Pulse Resp BP Pulse Ox 12/31/17 11:22 98.1 F 62 17 117/55 92 General: Conversant, No Apparent Distress HEENT: Atraumatic, Normocephaly, Mucus Membranes Moist Neck: No JVD, Normal carotid pulses Cardiac: Reg Rate and Rhythm, Normal S1 and S2, No Murmur Lungs: Normal Breath Sounds, No Wheeze, Rales, Rhonchi Neuro: Alert and responsive, No focal deficits noted Abdomen: Soft, Non-Tender Skin: No rashes noted on visualized skin Musculoskeletal: No Chest Wall Tenderness Extremities: No Clubbing, No Cyanosis, No Edema, Normal Pulses Results 12/31/17 03:48 12/31/17 03:48 Lab Results Impressions Echocardiogram 12/30/17 11:10 Impressions: LVEF 45%. Mildly dilated left ventricle. Atypical septal motion consistent with bundle branch block. Mild global left ventricular systolic dysfunction. Mild left ventricular diastolic dysfunction. Normal right ventricular structure and function. Unable to estimate RVSP due to lack of TR jet. No significant valvular dysfunction. Left Ventricular Wall Motion: Rest Echo Findings The apex, apical inferior, mid inferior, basal inferior, apical anterior, mid anterior, basal anterior, apical septal, mid inferior septal, basal inferior septal, apical lateral, mid anterior lateral, basal anterior lateral, mid anterior septal, mid inferior lateral, basal anterior septal and basal inferior lateral gutierrez were hypokinetic. Findings: Study Quality * Technically adequate exam. ECG Findings * Sinus rhythm with BBB. Left Ventricle * LVEF 45%. * Mildly dilated left ventricle. * Atypical septal motion consistent with bundle branch block. * Mild global left ventricular systolic dysfunction. * Mild left ventricular diastolic dysfunction. Right Ventricle * Normal right ventricular structure and function. Left Atrium * Mildly dilated left atrium. Right Atrium * Mildly dilated right atrium. Aortic Valve * Aortic valve not well visualized. * Trace aortic regurgitation. * No aortic stenosis. Mitral Valve * Normal mitral valve structure and function. * No mitral stenosis. * Trace mitral regurgitation. Tricuspid Valve * Normal tricuspid valve structure and function. * No tricuspid regurgitation. * Unable to estimate RVSP due to lack of TR jet. Pulmonic Valve * Pulmonic valve not well visualized. Aorta * Normally sized aortic root. Pericardium * The pericardium appears normal. IVC * Normal IVC dimensions and inspiratory collapse. Pulmonary Artery * Normal visualized portions of the main pulmonary artery. Active Medications Acetaminophen (Tylenol) 650 mg PO Q6HR PRN PRN Reason: Mild Pain/Fever Stop: 06/30/18 17:30 Last Admin: 12/31/17 08:04 Dose: 650 mg Aspirin (Aspirin Ec) 81 mg PO DAILY [facility] Stop: 07/01/18 09:01 Last Admin: 12/31/17 08:05 Dose: 81 mg Atorvastatin Calcium (Lipitor) 40 mg PO HS [facility] Stop: 07/01/18 21:01 Last Admin: 12/30/17 20:56 Dose: 40 mg Carvedilol (Coreg) 12.5 mg PO BIDWM [facility] Stop: 06/30/18 19:01 Last Admin: 12/31/17 08:06 Dose: 12.5 mg Dextrose/Water (Dextrose 50% (Syg)) 25 ml IVP AD PRN PRN Reason: Hypoglycemia Stop: 06/30/18 17:40 Fenofibrate (Tricor) 54 mg PO DAILY [facility] Stop: 07/01/18 09:01 Last Admin: 12/31/17 08:05 Dose: 54 mg Glucagon (Glucagen) 1 mg IM ONCE PRN PRN Reason: Hypoglycemia Stop: 06/30/18 17:40 Glucose (Gluctose) 15 gm PO ONCE PRN PRN Reason: Hypoglycemia Stop: 06/30/18 17:40 Glucose (Gluctose) 30 gm PO ONCE PRN PRN Reason: Hypoglycemia Stop: 06/30/18 17:40 Heparin Sodium (Porcine) (Heparin) 5,000 unit SQ Q8HCO [facility] Stop: 06/30/18 22:01 Last Admin: 12/31/17 06:25 Dose: 5,000 unit Dextrose (Dextrose 5%) 1,000 mls @ 100 mls/hr IVC .Q10H PRN PRN Reason: HYPOGLYCEMIA Stop: 06/30/18 17:40 Insulin Human Lispro (Humalog) 0 units SQ TIDAC [facility] PRN Reason: Protocol Stop: 07/01/18 07:31 Last Admin: 12/31/17 11:36 Dose: 2 units Insulin Human Lispro (Humalog) 0 units SQ HS [facility] PRN Reason: Protocol Stop: 06/30/18 21:01 Last Admin: 12/30/17 20:55 Dose: Not Given Isosorbide Mononitrate (Imdur) 30 mg PO DAILY [facility] Stop: 07/01/18 12:01 Last Admin: 12/31/17 08:05 Dose: 30 mg Lisinopril (Zestril) 5 mg PO DAILY [facility] PRN Reason: Protocol Stop: 07/01/18 09:01 Last Admin: 12/31/17 08:05 Dose: 5 mg Naloxone HCl (Narcan) 0.4 mg IVP Q2MIN PRN PRN Reason: SEE COMMENTS Stop: 06/30/18 17:30 Nitroglycerin (Nitroglycerin) 0.4 mg SL Q5MIN PRN PRN Reason: Chest Pain Stop: 06/30/18 17:44 Last Admin: 12/29/17 22:09 Dose: 0.4 mg Ondansetron HCl (Zofran) 4 mg IVP Q6HR PRN; Protocol PRN Reason: Nausea And Vomiting Stop: 06/30/18 17:47 Last Admin: 12/29/17 18:22 Dose: 4 mg Pantoprazole Sodium (Protonix) 40 mg IVP Q12HR [facility] Stop: 06/30/18 18:01 Last Admin: 12/31/17 06:25 Dose: 40 mg Tamsulosin HCl (Flomax) 0.4 mg PO DAILY [facility] PRN Reason: Protocol Stop: 07/01/18 09:01 Last Admin: 12/31/17 08:05 Dose: 0.4 mg Tramadol HCl (Ultram) 50 mg PO TID PRN PRN Reason: Moderate Pain Stop: 06/30/18 18:02 Last Admin: 12/30/17 09:43 Dose: 50 mg Laboratory Tests 12/29/17 12/29/17 12/30/17 12:42 18:28 00:50 Hgb Creatinine Troponin I < 0.03 < 0.03 < 0.03 12/31/17 12/31/17 03:48 03:48 Hgb 12.5 L Creatinine 1.09 Troponin I - Imaging and Cardiology Chest Xray: report reviewed Stress Test: report reviewed Echo: report reviewed - EKG Interpretation EKG results cardiology: other (Telemetry reviewed with average HR previous 12 hours noted to be 59, SB. PVCS and PACS noted.) Consult Discharge Plan - Plan Referrals: Debbie May MD [Primary Care Provider] -
--- NOTE | 2017-12-31 12:38 | Discharge Summary ---
- NOTES TO OUTPATIENT PROVIDER Notes to Outpatient Provider: Patient underwent cardiac stress test without evidence of ischemia infarct he was started on Imdur per cardiology Orders not resulted at time of discharge: Pending orders 12/30/17 06:00 NM zoya perf SPECT multi [NM] Routine 01/01/18 04:00 Complete Blood Count [HEME] AM 0400 Comprehensive Metabolic Panel AM 0400 01/02/18 04:00 Complete Blood Count [HEME] AM 0400 Comprehensive Metabolic Panel AM 0400 Date of Encounter: 12/31/17 Time of Encounter: 12:36 - Discharge Diagnosis (1) Chest pain Priority: Primary Status: Acute Qualifiers: Chest pain type: other chest pain Qualified Code(s): R07.89 - Other chest pain; R07.8 - Other chest pain (2) HTN (hypertension) Priority: Secondary Status: Chronic Qualifiers: Hypertension type: essential hypertension Qualified Code(s): I10 - Essential (primary) hypertension (3) HLD (hyperlipidemia) Priority: Secondary Status: Chronic Qualifiers: Hyperlipidemia type: pure hypercholesterolemia Qualified Code(s): E78.00 - Pure hypercholesterolemia, unspecified; E78.0 - Pure hypercholesterolemia (4) GERD (gastroesophageal reflux disease) Priority: Secondary Status: Chronic Qualifiers: Esophagitis presence: esophagitis presence not specified Qualified Code(s) : K21.9 - Gastro-esophageal reflux disease without esophagitis (5) Diabetes Priority: Secondary Status: Chronic Qualifiers: Diabetes mellitus type: type 2 Diabetes mellitus intermediate insulin use: without rn long term care use Diabetes mellitus complication status: with unspecified complications Qualified Code(s): E11.8 - Type 2 diabetes mellitus with unspecified complications Hospital course: Mr. Patel is a 72 year old male past medical history diabetes hyperlipidemia CAD status post MO with PCI 2008 GERD gastroparesis. Patient presented to [facility] ER with complaints of chest pain while he was driving in his car. Was midsternal radiating into his back. He did have previous MO with symptoms of left arm pain nausea and vomiting. He denies any left arm pain nausea or vomiting on this presentation. Reports pain has been constant since Wednesday afternoon denies any aggravating or relieving factors. Troponin was negative 3 EKG with sinus rhythm with a known left bundle branch block TTE 2012 with LVEF 50% mildly dilated LV -repeat echo completed LVEF 45% with mildly dilated LV [facility] 2012 with pain LAD stent 30% left circumflex 30% RCA. He underwent a nuclear cardiac stress test which was negative for any ischemia or infarct. He was seen by cardiology and placed on Imdur. He continues to experience dull aching chest pressure however suspect this is musculoskeletal since it is reproducible it appears to be worse with movement. Did discuss with cardiology-cardiology okay to discharge and follow-up as outpatient. Advised patient to follow-up with cardiology and continue with Imdur-also advised patient to follow-up with PCP. Patient verbalized understanding he is hemodynamically stable ready for discharge. Discharge discussed with: patient Time spent discussing smoking cessation with patient: 3 to 10 minutes - Time Spent with Patient Total time spent providing and/or coordinating discharge services: - Discharge Medications Prescriptions: Isosorbide MONOnitrate (24 HR) [Imdur] 30 mg PO DAILY #30 tab.er.24h Home Medications: Aspirin [Lo-Dose Aspirin EC] 81 mg PO DAILY 12/29/17 [History] Atorvastatin [Lipitor] 40 mg PO HS 12/29/17 [History] Carvedilol 12.5 mg PO BID 12/29/17 [History] Esomeprazole Magnesium [Nexium] 40 mg PO DAILY 12/29/17 [History] Fenofibrate Nanocrystallized [Tricor] 48 mg PO DAILY 12/29/17 [History] Lisinopril [Zestril] 5 mg PO DAILY 12/29/17 [History] Metformin HCl [Glucophage] 1,000 mg PO BID 12/29/17 [History] Metoclopramide [Reglan] 10 mg PO QIDAC 12/29/17 [History] SitaGLIPtin [Januvia] 100 mg PO DAILY 12/29/17 [History] Tamsulosin HCl [Flomax] 0.4 mg PO DAILY 12/29/17 [History] glipiZIDE [Glucotrol] 5 mg PO DAILY 12/29/17 [History] Isosorbide MONOnitrate (24 HR) [Imdur] 30 mg PO DAILY #30 tab.er.24h 12/31/17 [ Rx] Allergies/Adverse Reactions: 3 Allergy/AdvReac Type Severity Reaction Status Date / Time simvastatin Allergy Rash Verified 04/07/15 17:29 Date of admission: 12/29/17 14:50 Primary care physician: Debbie May Consults: 12/29/17 17:36 Consult to Pharmacist Hospital [CONS] Routine Reason for SW Consult: Please assess pt. for possible home needs for post- discharge planning. 12/29/17 18:29 Consult to Cardiology [CONS] Routine Comment: Consulting Provider: Cardiology Joselyn Reason for Consult: CP w/LBBB on EKG Call Completed: Yes Discharging clinician: Saira Vargas Anticipated date of discharge: 12/31/17 - Constitutional Vitals: Temp Pulse Resp BP Pulse Ox 98.1 F 62 17 117/55 92 12/31/17 11:22 12/31/17 11:22 12/31/17 11:22 12/31/17 11:22 12/31/17 11:22 General appearance: Present: cooperative, mild distress (Chest pain), A&O X 3, pleasant, obese, answers questions appropriately - Head Head exam: Present: atraumatic, normocephalic - Eye Eye exam: Present: PERRL, conjuntiva pink, sclera anicteric Pupils: Present: PERRL - Neck Neck exam general surgery: Present: supple, trachea midline. Absent: lymphadenopathy - Respiratory Respiratory exam: Present: CTAB. Absent: accessory muscle use, rales, rhonchi, wheezes - Cardiovascular Cardiovascular exam: Present: RRR, +S1, +S2. Absent: diastolic murmur, gallop, rubs, systolic murmur - GI/Abdominal GI/Abdominal exam: Present: normal bowel sounds, soft, no peritoneal signs. Absent: distended, tenderness - Extremities Exam Extremities exam: Present: warm, radial pulses palpable and symmetrical. Absent : calf tenderness, cyanotic, pedal edema - Neurological Exam Neurological exam: Present: CN II-XII intact, oriented X3, no focal deficits. Absent: pronater drift, facial droop, speech deficit - Skin Skin exam: Present: dry, intact - Patient Status Disposition: Home, Self-Care Condition: Good Functional capacity at discharge: independent ambulation Overall status at discharge: patient is back to baseline - Discharge Instructions Follow Up With: Debbie May MD [Primary Care Provider] - Anthony Suggs DO [Partnered Physician] - - Diet and Activity Activity: increase activity as tolerated Diet: low fat, low cholesterol
== END 2017-12-31 13:52 | disposition home or self-care (01) ==
LOC: EMEROO 11:56 → 3BNU 11:56
PROVIDERS: ADMIT Nurse Practitioner Family; ATTEND Nurse Practitioner Family

== ENCOUNTER 2018-01-16 13:35 | Inpatient (IN) ==
[2018-01-16] MEDS ORDERED: Aspirin 81 MG TAB.CHEW PO ONE (13:43)
--- NOTE | 2018-01-16 13:44 | Emergency Department Note ---
Disposition Clinical Impression: Chest pain Qualifiers: Chest pain type: other chest pain Qualified Code(s): R07.89 - Other chest pain ; R07.8 - Other chest pain Disposition: Admitted As Inpatient Condition: Good Forms: ED Satisfaction Letter Chest Pain HPI - General Chief Complaint: ED Chest Pain Stated Complaint: chest pain Time Seen by Provider: 01/16/18 13:43 Vital Signs Reviewed: Yes Nursing Notes Reviewed: Yes - History of Present Illness HPI Narrative: 72-year-old male presents emergency department with concern for chest pain. Patient states that this been intermittent over the last 2 weeks since he has been discharged from the hospital. 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 Patient admits to some nausea with it but no vomiting. Patient denies whether his exertional or not. Severity scale (1-10): 8 - Related Data Home Medications Medication Instructions Recorded Confirmed Aspirin [Lo-Dose Aspirin EC] 81 mg PO DAILY 12/29/17 12/29/17 Atorvastatin [Lipitor] 40 mg PO HS 12/29/17 12/29/17 Carvedilol 12.5 mg PO BID 12/29/17 12/29/17 Esomeprazole Magnesium [Nexium] 40 mg PO DAILY 12/29/17 12/29/17 Fenofibrate Nanocrystallized 48 mg PO DAILY 12/29/17 12/29/17 [Tricor] Lisinopril [Zestril] 5 mg PO DAILY 12/29/17 12/29/17 Metformin HCl [Glucophage] 1,000 mg PO BID 12/29/17 12/29/17 Metoclopramide [Reglan] 10 mg PO QIDAC 12/29/17 12/29/17 Tamsulosin HCl [Flomax] 0.4 mg PO DAILY 12/29/17 12/29/17 glipiZIDE [Glucotrol] 5 mg PO DAILY 12/29/17 12/29/17 Sitagliptin Phosphate [Januvia] 50 mg PO DAILY 01/16/18 01/16/18 Previous Rx's Medication Instructions Recorded Isosorbide MONOnitrate (24 HR) 30 mg PO DAILY #30 tab.er.24h 12/31/17 [Imdur] Allergies Allergy/AdvReac Type Severity Reaction Status Date / Time simvastatin Allergy Rash Verified 04/07/15 17:29 All systems ED: reviewed and negative except as stated. Review of Systems: As Per HPI Constitutional: Denies: fever Cardiovascular: Reports: chest pain Respiratory: Denies: cough, dyspnea, wheezes Gastrointestinal: Reports: nausea. Denies: abdominal pain, vomiting Genitourinary: Denies: urgency, dysuria Musculoskeletal: Denies: back pain Integumentary: Denies: rash Neurological: Denies: headache, weakness, numbness, paresthesias Endocrine: Denies: fatigue Chest Pain PMH - Past Medical History Medical history: Reports: coronary artery disease, diabetes, GERD, hyperlipidemia, hypertension, myocardial infarction (2007 stent), other Surgical history: Reports: non-contributory Psychiatric history: Reports: no psych history - Social History Smoking Status: Former smoker Alcohol use: Reports: none Drug use: Reports: none Physical Exam - Head Head exam: atraumatic, normocephalic - Eye Eye exam: Present: EOMI - ENT ENT exam: normal exam, normal oropharynx - Neck Neck exam: Present: full ROM, trachea midline. Absent: tenderness, meningismus - Chest Chest inspection: Present: normal inspection, symmetric chest wall rise - Respiratory Respiratory exam: Present: normal lung sounds bilaterally. Absent: respiratory distress, accessory muscle use - Cardiovascular Cardiovascular exam: Present: regular rate, normal rhythm, normal heart sounds - Abdominal Exam Abdominal exam: Present: soft, Non-Tender. Absent: distention, guarding, rebound - Extremities Exam Extremities exam: Absent: pedal edema - Neurological Exam Neurological exam: Present: alert, oriented X3, CN II-XII intact - Psychiatric Psychiatric exam: Present: normal affect, normal mood Course Vital Signs Temperature 98.3 F 01/16/18 13:36 Pulse Rate 92 01/16/18 13:36 Respiratory Rate 16 01/16/18 13:36 Blood Pressure 126/65 01/16/18 13:36 O2 Sat by Pulse Oximetry 96 01/16/18 13:36 Temperature 98.3 F 01/16/18 13:42 Pulse Rate 73 01/16/18 14:50 Respiratory Rate 12 01/16/18 14:50 Blood Pressure 124/69 01/16/18 14:50 O2 Sat by Pulse Oximetry 95 01/16/18 14:50 Oxygen Delivery Oxygen Delivery Room Air Chest Pain - MDM Narrative Medical decision making narrative: 71-year-old male presents emergency department with concern for chest pain. Patient states that this same type of chest pain he had with his first NV, but not as severe in quality. Patient this was have heart catheterization this . Patient was given 3 sibling one nitroglycerin and this did not result chest pain. IV fentanyl and Percocet did help and patient's stated chest pain was 4 out of 10. EKG did not reveal any new ischemic changes. Troponin was negative. Patient was given aspirin here in the emergency department. Patient shows mildly elevated creatinine, but it appears to be within the same as recent visits. He was given a 500 mL bolus of normal saline. Because of patient's continued chest pain after discharge, and knowledge of patient needing heart catheterization, believe it is best for patient to be admitted for further observation and evaluation for his chest pain. Patient and are at bedside. They agree with plan. Spoke with the hospitalist Dr. Lorenzo who agreed to admit the patient. Patient hemodynamically stable reporting chest pain that had been significantly reduced a 4 out of 10 in severity. Not in any acute distress. - Lab Data Result diagrams: 01/16/18 13:53 01/16/18 13:53 Lab Results 01/16/18 01/16/18 01/16/18 Range/Units 13:43 13:53 13:53 WBC 9.3 (4.3-11.1) K/mcL RBC 4.68 (4.19-5.50) M/mcL Hgb 14.3 (12.9-16.9) g/dL Hct 42.3 (37.5-50.1) % MCV 90.4 (83.0-100.0) fL MCH 30.6 (28.0-33.3) pg MCHC 33.8 (31.6-35.5) g/dL RDW 13.5 (11.5-14.5) % Plt Count 334 (140-400) K/mcL MPV 9.9 (9.4-12.4) fL Immature Gran % 0.2 (0-4) % Seg Neutrophils % 73.7 % Lymphocytes % 17.4 % Monocytes % 5.8 % Eosinophils % 1.9 % Basophils % 1.0 % Neutrophils # 6.8 (1.6-8.9) K/mcL Lymphocytes # 1.6 (0.6-4.6) K/mcL Monocytes # 0.5 (0.0-1.3) K/mcL Eosinophils # 0.2 (0.0-0.6) K/mcL Basophils # 0.1 (0.0-0.2) K/mcL Sodium 135 L (136-145) mEq/L Potassium 3.7 (3.5-5.1) mEq/L Chloride 102 (98-107) mEq/L Carbon Dioxide 23 (23-29) mEq/L BUN 14 (8-23) mg/dL Creatinine 1.31 H (0.70-1.30) mg/dL Est GFR ( Amer) > 60 (> 60) Est GFR (Non-Af Amer) 54 L (> 60) BUN/Creatinine Ratio 11 (6-26) Glucose 197 H (70-105) mg/dL Calculated Osmolality 286 (280-300) Calcium 9.6 (8.6-10.3) mg/dL Troponin I < 0.03 (< 0.04) ng/mL B-Natriuretic Peptide 115 H (Less than 100) pg/mL Heart Score - Score History: Moderately Suspicious EKG: Normal Age: Greater than 65 Risk Factors: Equal/Greater than 3 risk factor or history of atherosclerotic disease Troponin: Less than normal limit HEART Score Total: 5
[2018-01-16] MEDS: Nitroglycerin 0.4 MG TAB.SUBL SL PRN ×3 (14:03→14:13)
[2018-01-16 14:07] LABS: Basophils # 0.1 K/mcL (0.0-0.2); Eosinophils # 0.2 K/mcL (0.0-0.6); Eosinophils % 1.9 %; Hematocrit 42.3 % (37.5-50.1); Hemoglobin 14.3 g/dL (12.9-16.9); Immature Granulocytes % 0.2 % (0-4); Lymphocytes # 1.6 K/mcL (0.6-4.6); Lymphocytes % 17.4 %; Mean Corpuscular HGB Conc 33.8 g/dL (31.6-35.5); Mean Corpuscular Hemoglobin 30.6 pg (28.0-33.3); Mean Corpuscular Volume 90.4 fL (83.0-100.0); Mean Platelet Volume 9.9 fL (9.4-12.4); Monocytes # 0.5 K/mcL (0.0-1.3); Monocytes % 5.8 %; Neutrophils # 6.8 K/mcL (1.6-8.9); Platelet Count 334 K/mcL (140-400); Red Blood Count 4.68 M/mcL (4.19-5.50); Red Cell Distribution Width 13.5 % (11.5-14.5); Segmented Neutrophils % 73.7 %
[2018-01-16] MEDS ORDERED: Ondansetron 4 MG/2 ML VIAL IVP ONE (14:07)
[2018-01-16] MEDS ORDERED: *HR* FentaNYL (PF) 100 MCG/2 ML VIAL IVP ONE (14:20)
[2018-01-16] MEDS ORDERED: *HR* OxyCODONE/APAP 5/325 TABLET PO ONE (14:20)
[2018-01-16 14:25] LABS: BUN/Creatinine Ratio 11 (6-26); Blood Urea Nitrogen 14 mg/dL (8-23); Calcium 9.6 mg/dL (8.6-10.3); Carbon Dioxide 23 mEq/L (23-29); Chloride 102 mEq/L (98-107); Glucose 197 mg/dL (70-105); Osmolality,Calculated 286 (280-300); Potassium 3.7 mEq/L (3.5-5.1); Sodium 135 mEq/L (136-145); eGFR For African Americans > 60 (> 60); eGFR For Non-African Americans 54 (> 60)
[2018-01-16 14:26] LABS: Troponin I < 0.03 ng/mL (< 0.04)
[2018-01-16] MEDS ORDERED: 0.9 % Sodium Chloride 500 ML IVC ONE (14:42)
--- NOTE | 2018-01-16 15:23 | Emergency Department Note ---
Disposition Clinical Impression: Chest pain, rule out acute myocardial infarction Disposition: Admitted As Inpatient Condition: Good Forms: ED Satisfaction Letter Chest Pain HPI - General Chief Complaint: ED Chest Pain Stated Complaint: chest pain Time Seen by Provider: 01/16/18 13:43 Source: patient Limitations: no limitations Vital Signs Reviewed: Yes Nursing Notes Reviewed: Yes - History of Present Illness Severity scale (1-10): 8 - Related Data Home Medications Medication Instructions Recorded Confirmed Aspirin [Lo-Dose Aspirin EC] 81 mg PO DAILY 12/29/17 01/16/18 Atorvastatin [Lipitor] 40 mg PO HS 12/29/17 01/16/18 Carvedilol 12.5 mg PO BID 12/29/17 01/16/18 Esomeprazole Magnesium [Nexium] 40 mg PO DAILY 12/29/17 01/16/18 Fenofibrate Nanocrystallized 48 mg PO DAILY 12/29/17 01/16/18 [Tricor] Lisinopril [Zestril] 5 mg PO DAILY 12/29/17 01/16/18 Metformin HCl [Glucophage] 1,000 mg PO BID 12/29/17 01/16/18 Metoclopramide [Reglan] 10 mg PO QIDAC 12/29/17 01/16/18 Tamsulosin HCl [Flomax] 0.4 mg PO DAILY 12/29/17 01/16/18 glipiZIDE [Glucotrol] 5 mg PO DAILY 12/29/17 01/16/18 Sitagliptin Phosphate [Januvia] 50 mg PO DAILY 01/16/18 01/16/18 Previous Rx's Medication Instructions Recorded Isosorbide MONOnitrate (24 HR) 30 mg PO DAILY #30 tab.er.24h 12/31/17 [Imdur] Allergies Allergy/AdvReac Type Severity Reaction Status Date / Time simvastatin Allergy Rash Verified 04/07/15 17:29 Constitutional: Denies: fever Cardiovascular: Reports: chest pain Respiratory: Denies: cough, dyspnea, wheezes Gastrointestinal: Reports: nausea. Denies: abdominal pain, vomiting Genitourinary: Denies: urgency, dysuria Musculoskeletal: Denies: back pain Integumentary: Denies: rash Neurological: Denies: headache, weakness, numbness, paresthesias Endocrine: Denies: fatigue Chest Pain PMH - Past Medical History Medical history: Reports: coronary artery disease, diabetes, GERD, hyperlipidemia, hypertension, myocardial infarction (2007 w/ stent), other Surgical history: Reports: non-contributory Psychiatric history: Reports: no psych history - Social History Smoking Status: Former smoker Alcohol use: Reports: none Drug use: Reports: none Physical Exam - General Limitations: no limitations General appearance: alert Course Vital Signs Temperature 98.3 F 01/16/18 13:36 Pulse Rate 92 01/16/18 13:36 Respiratory Rate 16 01/16/18 13:36 Blood Pressure 126/65 01/16/18 13:36 O2 Sat by Pulse Oximetry 96 01/16/18 13:36 Temperature 98.3 F 01/16/18 13:42 Pulse Rate 73 01/16/18 14:50 Respiratory Rate 12 01/16/18 14:50 Blood Pressure 124/69 01/16/18 14:50 O2 Sat by Pulse Oximetry 95 01/16/18 14:50 Oxygen Delivery Oxygen Delivery Room Air Chest Pain - Lab Data Result diagrams: 01/16/18 13:53 01/16/18 13:53 Lab Results 01/16/18 01/16/18 01/16/18 Range/Units 13:43 13:53 13:53 WBC 9.3 (4.3-11.1) K/mcL RBC 4.68 (4.19-5.50) M/mcL Hgb 14.3 (12.9-16.9) g/dL Hct 42.3 (37.5-50.1) % MCV 90.4 (83.0-100.0) fL MCH 30.6 (28.0-33.3) pg MCHC 33.8 (31.6-35.5) g/dL RDW 13.5 (11.5-14.5) % Plt Count 334 (140-400) K/mcL MPV 9.9 (9.4-12.4) fL Immature Gran % 0.2 (0-4) % Seg Neutrophils % 73.7 % Lymphocytes % 17.4 % Monocytes % 5.8 % Eosinophils % 1.9 % Basophils % 1.0 % Neutrophils # 6.8 (1.6-8.9) K/mcL Lymphocytes # 1.6 (0.6-4.6) K/mcL Monocytes # 0.5 (0.0-1.3) K/mcL Eosinophils # 0.2 (0.0-0.6) K/mcL Basophils # 0.1 (0.0-0.2) K/mcL Sodium 135 L (136-145) mEq/L Potassium 3.7 (3.5-5.1) mEq/L Chloride 102 (98-107) mEq/L Carbon Dioxide 23 (23-29) mEq/L BUN 14 (8-23) mg/dL Creatinine 1.31 H (0.70-1.30) mg/dL Est GFR ( Amer) > 60 (> 60) Est GFR (Non-Af Amer) 54 L (> 60) BUN/Creatinine Ratio 11 (6-26) Glucose 197 H (70-105) mg/dL Calculated Osmolality 286 (280-300) Calcium 9.6 (8.6-10.3) mg/dL Troponin I < 0.03 (< 0.04) ng/mL B-Natriuretic Peptide 115 H (Less than 100) pg/mL Attestation Statement - Attestation Attestation: I, Hua Cee, examined this patient and my medical decision-making was reviewed with the STAFF PSYCHIATRIST/PA/Advanced Practice Nurse/Resident Physician. I agree with the documented findings, disposition and treatment plan as described except to the extent set forth below. 72-year-old male presents emergency Department with concerns of chest pain. Patient states he was evaluated for chest pain within the past month, he was discharged and followed up with his unemployment claims adjudicator, Dr. Suggs. Because the patient had continued chest pain after his discharge, he had a heart catheterization scheduled for 4 days from now. Patient reports having acute onset of worsening of his chest pain this morning which was associated with lightheadedness, diaphoresis and nausea. Patient has a history of previous ID which required stenting. Initial troponin negative. EKG showed normal sinus rhythm with a rate of 80 with left bundle-branch block without evidence of STEMI. Initial troponin negative. Chest x-ray did not show significant abnormality. Patient will be admitted to the hospitalist for further care and evaluation.
[2018-01-16] MEDS ORDERED: Acetaminophen 325 MG TABLET PO PRN (15:47)
[2018-01-16] MEDS ORDERED: traMADol 50 MG TABLET PO PRN (15:47)
[2018-01-16] MEDS ORDERED: Naloxone 0.4 MG/ML INJ IVP PRN (15:47)
[2018-01-16] MEDS ORDERED: D5% in Water 1,000 ML IVC PRN (15:51)
[2018-01-16] MEDS ORDERED: *HR* Dextrose 50 % in Water (Syg) 50 ML SYRINGE IVP PRN (15:51)
[2018-01-16] MEDS ORDERED: Dextrose Gel 15 GM/37.5 ML TUBE PO PRN ×2 (15:51)
--- NOTE | 2018-01-16 15:55 | Internal Med History&Physical ---
Addendum entered and electronically signed by Luz Maria Corcoran 01/16/18 16:38: MORTEZA - Likely prerenal, repeat renal function panel in the a.m. Addendum entered and electronically signed by Luz Maria Corcoran 01/16/18 16:34: Original Note: <Luz Maria Corcoran - Last Filed: 01/16/18 15:52> Date of Encounter: 01/16/18 Time of Encounter: 15:52 Internal Medicine - H&P: HPI Admitted From: Home Plans for Post Hospital Care: Home History of present illness: Mr. Patel is a 72-year-old male with past medical history of CAD status post stent placement, hypertension, hyperlipidemia, and diabetes presented with concerns of chest pain. 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 Suggs. Because the patient had continued chest pain after his discharge, he had a heart catheterization scheduled for 4 days from now. Patient reports having acute onset of worsening of his chest pain this morning which was associated with lightheadedness, diaphoresis and nausea. Patient has a history of previous CA which required stenting. Initial troponin negative. EKG showed normal sinus rhythm with a rate of 80 with left bundle-branch block without evidence of STEMI. Initial troponin negative. Chest x-ray did not show significant abnormality. Patient will be admitted to the hospitalist for further care and evaluation. Past Med Surg Social Fam HX - Past Medical History Medical history: coronary artery disease, diabetes, GERD, hyperlipidemia, hypertension, myocardial infarction (2007 stent), other Psychiatric history: no psych history - Past Surgical History Surgical History: non-contributory - Social History Smoking Status: Former smoker Smokeless Tobacco Status: No Alcohol use: none Drug use: none - Family History Mother Family Member Ethnicity: Non- Living Status: Hx Family Cardiac Disorders: Yes (CHF) Hx Family Endocrine Disorder: Yes (DM) Father Family Member Ethnicity: Non- Living Status: Hx Family Neuromuscular Disorders: Yes (Parkinson's) Brother Family Member Ethnicity: Non- Living Status: Still Living Sister Family Member Ethnicity: Non- Living Status: Still Living Hx Family Cardiac Disorders: Yes (CAD) Hx Family Endocrine Disorder: Yes (DM) Internal Medicine - H&P: Meds Aspirin [Lo-Dose Aspirin EC] 81 mg PO DAILY 12/29/17 [History] Atorvastatin [Lipitor] 40 mg PO HS 12/29/17 [History] Carvedilol 12.5 mg PO BID 12/29/17 [History] Esomeprazole Magnesium [Nexium] 40 mg PO DAILY 12/29/17 [History] Fenofibrate Nanocrystallized [Tricor] 48 mg PO DAILY 12/29/17 [History] Lisinopril [Zestril] 5 mg PO DAILY 12/29/17 [History] Metformin HCl [Glucophage] 1,000 mg PO BID 12/29/17 [History] Metoclopramide [Reglan] 10 mg PO QIDAC 12/29/17 [History] Tamsulosin HCl [Flomax] 0.4 mg PO DAILY 12/29/17 [History] glipiZIDE [Glucotrol] 5 mg PO DAILY 12/29/17 [History] Isosorbide MONOnitrate (24 HR) [Imdur] 30 mg PO DAILY #30 tab.er.24h 12/31/17 [ Rx] Sitagliptin Phosphate [Januvia] 50 mg PO DAILY 01/16/18 [History] 3 Allergy/AdvReac Type Severity Reaction Status Date / Time simvastatin Allergy Rash Verified 04/07/15 17:29 All Systems PM: A 10-system review of systems was performed and is negative for pertinent findings except as documented above in the HPI. Review of systems: REVIEW OF SYSTEMS: CONSTITUTIONAL: No weight loss, fever, chills, weakness or fatigue. HEENT: Eyes: No visual loss, blurred vision, double vision or yellow sclerae. Ears, Nose, Throat: No hearing loss, sneezing, congestion, runny nose or sore throat. SKIN: No rash or itching. CARDIOVASCULAR: see HPI. RESPIRATORY: No shortness of breath, cough or sputum. GASTROINTESTINAL: No anorexia, nausea, vomiting or diarrhea. No abdominal pain or blood. GENITOURINARY: No dysuria, urgency, or frequency. NEUROLOGICAL: No headache, dizziness, syncope, paralysis, ataxia, numbness or tingling in the extremities. No change in bowel or bladder control. MUSCULOSKELETAL: No muscle, back pain, joint pain or stiffness. HEMATOLOGIC: No anemia, bleeding or bruising. LYMPHATICS: No enlarged nodes. No history of splenectomy. PSYCHIATRIC: No history of depression or anxiety. ENDOCRINOLOGIC: No reports of sweating, cold or heat intolerance. No polyuria or polydipsia. - Constitutional Vitals: Temp Pulse Resp BP Pulse Ox 98.3 F 73 16 109/60 95 01/16/18 13:42 01/16/18 14:50 01/16/18 15:44 01/16/18 15:44 01/16/18 14:50 General appearance: Present: A&O X 3 Exam: PHYSICAL EXAMINATION: GENERAL APPEARANCE: The patient is alert, oriented and in no acute distress. HEENT: Head is normocephalic. The sinuses are nontender. Pupils are equal and reactive. The nares are patent. Oropharynx clear without lesions. NECK: Supple without lymphadenopathy. HEART: Regular rate and rhythm. LUNGS: No crackles or wheezes are heard. ABDOMEN: Soft, nontender, nondistended with good bowel sounds heard. Inguinal area is normal. EXTREMITIES: Without cyanosis, clubbing or edema. NEUROLOGICAL: Gross nonfocal. SKIN: Warm and dry without any rash. Internal Med - H&P Results - Labs CBC & Chem 7: 01/16/18 13:53 01/16/18 13:53 - Assessment and plan (1) Chest pain, rule out acute myocardial infarction Current Visit: Yes Status: Acute Assessment and plan: 72-year-old male with past medical history of CAD status post stent placement, recent hospitalization for cardiac workup presented with acute worsening of chronic chest pain. He was hospitalized here about 2 weeks ago for chest pain, cardiac workup including stress test and echocardiogram were not inclusive, and was scheduled at left heart catheter about 4 days from now. He presented with worsening chest pain for the last 2 days. - Last stress test on 12/30/2017 was nonconclusive because of underlying left bundle branch block. Echocardiogram revealed EF 40-45%, mild diastolic/ systolic dysfunction. - History of CAD with stent placement about 10 years ago, patient was on aspirin and Plavix, but currently only on aspirin. - Chest pain was typical per patient description. First troponin is negative, EKG is not diagnostic for CA due to underlying LBBB. - Ideology consult, may need urgent left heart catheter due to worsening symptoms. (2) CAD (coronary artery disease) Current Visit: No Status: Chronic Assessment and plan: Same as above. Qualifiers: Coronary Disease-Associated Artery/Lesion type: [place] artery [place] vs. transplanted heart: [place] heart Associated angina: with stable angina Qualified Code(s): I25.118 - Atherosclerotic heart disease of [place] coronary artery with other forms of angina pectoris (3) HTN (hypertension) Current Visit: No Status: Chronic Assessment and plan: BP controlled, continue home medications. Qualifiers: Hypertension type: essential hypertension Qualified Code(s): I10 - Essential (primary) hypertension (4) HLD (hyperlipidemia) Current Visit: No Status: Chronic Assessment and plan: Continue statins. Qualifiers: Hyperlipidemia type: pure hypercholesterolemia Qualified Code(s): E78.00 - Pure hypercholesterolemia, unspecified; E78.0 - Pure hypercholesterolemia (5) GERD (gastroesophageal reflux disease) Current Visit: No Status: Chronic Assessment and plan: Continue home medication. Qualifiers: Esophagitis presence: esophagitis presence not specified Qualified Code(s) : K21.9 - Gastro-esophageal reflux disease without esophagitis (6) Diabetes Current Visit: No Status: Chronic Assessment and plan: Hold all medication for diabetes, started patient on insulin sliding scale. Qualifiers: Diabetes mellitus type: type 2 Diabetes mellitus group home insulin use: without group home use Diabetes mellitus complication status: with unspecified complications Qualified Code(s): E11.8 - Type 2 diabetes mellitus with unspecified complications - Time Spent With Patient Total time spent is greater than 50% in coordination of care (as documented) at patient's floor/unit and/or counseling patient: Greater than 35 minutes <Carmel Ambrocio - Last Filed: 01/16/18 19:14> Date of Encounter: 01/16/18 Internal Medicine - H&P: HPI History of present illness: Mr. Patel is a 72 year old male All Systems PM: A 10-system review of systems was performed and is negative for pertinent findings except as documented above in the HPI. - Constitutional Vitals: Temp Pulse Resp BP Pulse Ox 98.2 F 70 15 127/76 95 01/16/18 19:03 01/16/18 19:03 01/16/18 19:03 01/16/18 19:03 01/16/18 19:03 Internal Med - H&P Results - Labs CBC & Chem 7: 01/16/18 13:53 01/16/18 13:53 - Attending Attestation I saw and examined this patient independently, and my medical decision making was reviewed with the JAVASCRIPT APPLICATION DEVELOPER/PA on 2017. I agree with the documented findings , assessment and treatment plan as described in the H&P. Patient is doing well, chest pain is soft. Vitas is stable. Cardiology was called and discussed by Nilo. Family is in the room, all questions are answered - Time Spent With Patient Total time spent is greater than 50% in coordination of care (as documented) at patient's floor/unit and/or counseling patient:
[2018-01-16] MEDS: *HR* Heparin 5,000 UNIT/ML VIAL SQ SCH (16:56)
[2018-01-16] MEDS: Insulin LISPRO 300 UNITS/3 ML VIAL SQ SCH ×2 (17:15→20:44)
[2018-01-17] MEDS: *HR* Heparin 5,000 UNIT/ML VIAL SQ SCH ×4 (00:16→23:23)
[2018-01-17 02:30] LABS: Basophils # 0.1 K/mcL (0.0-0.2); Basophils % 0.9 %; Eosinophils # 0.2 K/mcL (0.0-0.6); Eosinophils % 2.4 %; Hematocrit 36.9 % (37.5-50.1); Immature Granulocytes % 0.2 % (0-4); Lymphocytes # 2.4 K/mcL (0.6-4.6); Lymphocytes % 28.1 %; Mean Corpuscular HGB Conc 33.3 g/dL (31.6-35.5); Mean Corpuscular Hemoglobin 30.2 pg (28.0-33.3); Mean Corpuscular Volume 90.7 fL (83.0-100.0); Mean Platelet Volume 9.7 fL (9.4-12.4); Monocytes # 0.7 K/mcL (0.0-1.3); Monocytes % 7.6 %; Neutrophils # 5.3 K/mcL (1.6-8.9); Platelet Count 286 K/mcL (140-400); Red Blood Count 4.07 M/mcL (4.19-5.50); Red Cell Distribution Width 13.6 % (11.5-14.5); Segmented Neutrophils % 60.8 %
[2018-01-17 02:31] LABS: Hemoglobin 12.3 g/dL (12.9-16.9)
[2018-01-17 02:45] LABS: Troponin I < 0.03 ng/mL (< 0.04)
[2018-01-17 02:49] LABS: BUN/Creatinine Ratio 11 (6-26); Blood Urea Nitrogen 13 mg/dL (8-23); Calcium 8.8 mg/dL (8.6-10.3); Carbon Dioxide 23 mEq/L (23-29); Chloride 106 mEq/L (98-107); Glucose 155 mg/dL (70-105); Osmolality,Calculated 287 (280-300); Potassium 3.9 mEq/L (3.5-5.1); Sodium 137 mEq/L (136-145); eGFR For African Americans > 60 (> 60); eGFR For Non-African Americans 58 (> 60)
[2018-01-17] MEDS: Nitroglycerin 0.4 MG TAB.SUBL SL PRN (08:01)
[2018-01-17] MEDS: Insulin LISPRO 300 UNITS/3 ML VIAL SQ SCH ×4 (08:02→21:13)
[2018-01-17] MEDS: Aspirin Enteric Coated 81 MG Tablet PO SCH (08:02)
[2018-01-17] MEDS: Fenofibrate 54 MG TABLET PO SCH (08:03)
[2018-01-17] MEDS ORDERED: Isosorbide MONOnitrate (24 HR) 30 MG TAB.ER.24H PO SCH (09:00)
--- NOTE | 2018-01-17 09:26 | Cardiology Consult Note ---
<Hudson Kothari - Last Filed: 01/17/18 10:30> Date of Encounter: 01/17/18 Time of Encounter: 09:25 Assessment and Plan (1) Chest pain, rule out acute myocardial infarction Current Visit: Yes Status: Acute Per Cardiology: Troponins negative 3. Patient already arranged for outpatient catheterization. Seen today having symptoms of chest pain 4 out of 10. ECG showed left bundle branch block, comparable to baseline. Discussed and reviewed with Dr. Good, we will proceed with increased dose of long-acting nitrate and plan for catheterization tomorrow. Nasal cannula oxygen applied. Patient verbalized understanding and agreed to plan. All questions answered. Further recommendations after catheterization. (2) CAD (coronary artery disease) Current Visit: No Status: Chronic Per Cardiology: Known history of CAD with previous stenting and last catheterization in December 2012 with patent proximal LAD stent, mid circumflex 30%, proximal RCA 30%, and mid RCA 20% lesions. Had negative nuclear stress test December 2017. On aspirin, statin, beta rich, long-acting nitrate, and ELÍAS inhibitor. Qualifiers: Coronary Disease-Associated Artery/Lesion type: [place] artery [place] vs. transplanted heart: [place] heart Associated angina: with stable angina Qualified Code(s): I25.118 - Atherosclerotic heart disease of [place] coronary artery with other forms of angina pectoris Discussion w patient/family: The assessment and plan as outlined above was discussed with the patient who expressed understanding and agreement. All questions were answered. Thank you for involving us in the care of your patient. Please call with any questions. History of Present Illness Consult date: 01/17/18 Requesting physician: Luz Maria Corcoran Consult reason: CP Chief complaint: CP History of present illness: Mr. Patel is a 72 year old male with a relevant past medical history of CAD, left bundle branch block, DM 2, hypertension, hyperlipidemia. Recently seen by Dr. Suggs in outpatient setting with pending outpatient catheterization with recurrent chest pain despite negative stress test results. Cardiology consult for chest pain evaluation and catheterization. Patient reports he awakened yesterday morning with more chest pain symptoms. Came to the ER for evaluation. Patient seen this morning with chest pain which she describes as heaviness currently about a 4 out of 10. He reports left anterior chest wall with radiation to his left scapular region. He reports nitroglycerin pills with no relief. He reports recently started on long-acting nitrate with no improvement in symptoms. He denies any active bleeding or blood loss. Denies any other concerns or complaints today. Past Med Surg Social Fam HX - Past Medical History Attestation: Yes The following information was validated with the patient. Source: patient, old records reviewed Medical history: coronary artery disease, diabetes, GERD, hyperlipidemia, hypertension, myocardial infarction, other Psychiatric history: no psych history - Past Surgical History Surgical History: non-contributory - Social History Smoking Status: Former smoker Smokeless Tobacco Status: No Alcohol use: none Drug use: none - Family History Mother Family Member Ethnicity: Non- Living Status: Hx Family Cardiac Disorders: Yes (CHF) Hx Family Endocrine Disorder: Yes (DM) Father Family Member Ethnicity: Non- Living Status: Hx Family Neuromuscular Disorders: Yes (Parkinson's) Brother Family Member Ethnicity: Non- Living Status: Still Living Sister Family Member Ethnicity: Non- Living Status: Still Living Hx Family Cardiac Disorders: Yes (CAD) Hx Family Endocrine Disorder: Yes (DM) Medications and Allergies Aspirin [Lo-Dose Aspirin EC] 81 mg PO DAILY 12/29/17 [History] Atorvastatin [Lipitor] 40 mg PO HS 12/29/17 [History] Carvedilol 12.5 mg PO BID 12/29/17 [History] Esomeprazole Magnesium [Nexium] 40 mg PO DAILY 12/29/17 [History] Fenofibrate Nanocrystallized [Tricor] 48 mg PO DAILY 12/29/17 [History] Lisinopril [Zestril] 5 mg PO DAILY 12/29/17 [History] Metformin HCl [Glucophage] 1,000 mg PO BID 12/29/17 [History] Metoclopramide [Reglan] 10 mg PO QIDAC 12/29/17 [History] Tamsulosin HCl [Flomax] 0.4 mg PO DAILY 12/29/17 [History] glipiZIDE [Glucotrol] 5 mg PO DAILY 12/29/17 [History] Isosorbide MONOnitrate (24 HR) [Imdur] 30 mg PO DAILY #30 tab.er.24h 12/31/17 [ Rx] Sitagliptin Phosphate [Januvia] 50 mg PO DAILY 01/16/18 [History] 3 Allergy/AdvReac Type Severity Reaction Status Date / Time simvastatin Allergy Rash Verified 04/07/15 17:29 All Systems Review: The remainder of the systems were reviewed and are negative - Cardiovascular Cardiovascular: as per HPI, chest pain at rest Physical Examination Vital Signs, Last 4 Hours Temp Pulse Resp BP Pulse Ox 01/17/18 09:08 124/67 01/17/18 07:34 97.8 F 65 15 145/76 96 General: Conversant, No Apparent Distress HEENT: Atraumatic, Normocephaly Cardiac: Reg Rate and Rhythm, Normal S1 and S2, No Murmur Lungs: Normal Breath Sounds, No Wheeze, Rales, Rhonchi Neuro: Alert and responsive, No focal deficits noted Skin: No rashes noted on visualized skin Extremities: No Edema, Normal Pulses Results 01/17/18 02:08 01/17/18 02:08 Lab Results Laboratory Tests 01/16/18 01/16/18 01/16/18 13:43 13:53 19:39 Creatinine 1.31 H Est GFR (Non-Af Amer) 54 L Troponin I < 0.03 < 0.03 B-Natriuretic Peptide 115 H 01/17/18 02:08 Creatinine 1.23 Est GFR (Non-Af Amer) 58 L Troponin I < 0.03 B-Natriuretic Peptide ITS Impressions Chest X-Ray 01/16/18 13:43 IMPRESSION: No acute process. D/ / Dionisio Hurst MD / Dionisio Hurst MD Interpreting Provider: Dionisio Hurst MD Active Medications Acetaminophen (Tylenol) 650 mg PO Q6HR PRN PRN Reason: Mild Pain/Fever Stop: 07/18/18 15:48 Aspirin (Aspirin Ec) 81 mg PO DAILY BOOGIE Stop: 07/19/18 09:01 Last Admin: 01/17/18 08:02 Dose: 81 mg Atorvastatin Calcium (Lipitor) 40 mg PO HS BOOGIE Stop: 07/18/18 21:01 Last Admin: 01/16/18 20:37 Dose: 40 mg Carvedilol (Coreg) 12.5 mg PO BID BOOGIE Stop: 07/18/18 21:01 Last Admin: 01/17/18 08:02 Dose: 12.5 mg Dextrose/Water (Dextrose 50% (Syg)) 25 ml IVP AD PRN PRN Reason: Hypoglycemia Stop: 07/18/18 15:52 Fenofibrate (Tricor) 54 mg PO DAILY [facility] Stop: 07/19/18 09:01 Last Admin: 01/17/18 08:03 Dose: 54 mg Glucagon (Glucagen) 1 mg IM ONCE PRN PRN Reason: Hypoglycemia Stop: 07/18/18 15:52 Glucose (Gluctose) 15 gm PO ONCE PRN PRN Reason: Hypoglycemia Stop: 07/18/18 15:52 Glucose (Gluctose) 30 gm PO ONCE PRN PRN Reason: Hypoglycemia Stop: 07/18/18 15:52 Heparin Sodium (Porcine) (Heparin) 5,000 unit SQ Q8HR [facility] Stop: 07/18/18 16:01 Last Admin: 01/17/18 08:04 Dose: 5,000 unit Dextrose (Dextrose 5%) 1,000 mls @ 100 mls/hr IVC .Q10H PRN PRN Reason: HYPOGLYCEMIA Stop: 07/18/18 15:52 Insulin Human Lispro (Humalog) 0 units SQ HS BOOGIE PRN Reason: Protocol Stop: 07/18/18 21:01 Last Admin: 01/16/18 20:44 Dose: Not Given Insulin Human Lispro (Humalog) 0 units SQ TIDAC BOOGIE PRN Reason: Protocol Stop: 07/18/18 16:31 Last Admin: 01/17/18 08:02 Dose: Not Given Isosorbide Mononitrate (Imdur) 30 mg PO DAILY [facility] Stop: 07/19/18 09:01 Last Admin: 01/17/18 08:02 Dose: 30 mg Lisinopril (Zestril) 5 mg PO DAILY [facility] PRN Reason: Protocol Stop: 07/19/18 09:01 Last Admin: 01/17/18 08:03 Dose: 5 mg Naloxone HCl (Narcan) 0.4 mg IVP Q2MIN PRN PRN Reason: SEE COMMENTS Stop: 07/18/18 15:48 Nitroglycerin (Nitroglycerin) 0.4 mg SL Q5MIN PRN PRN Reason: Chest Pain Stop: 07/18/18 13:56 Last Admin: 01/17/18 08:01 Dose: 0.4 mg Omeprazole (Prilosec) 20 mg PO DAILY [facility] Stop: 07/19/18 09:01 Last Admin: 01/17/18 08:03 Dose: 20 mg Ondansetron HCl (Zofran) 4 mg IVP Q6HR PRN; Protocol PRN Reason: Nausea And Vomiting Stop: 07/18/18 15:52 Tamsulosin HCl (Flomax) 0.4 mg PO DAILY BOOGIE PRN Reason: Protocol Stop: 07/19/18 09:01 Last Admin: 01/17/18 08:03 Dose: 0.4 mg Tramadol HCl (Ultram) 50 mg PO Q6HR PRN PRN Reason: Moderate Pain Stop: 07/18/18 15:48 Last Admin: 01/17/18 08:01 Dose: 50 mg - Imaging and Cardiology Stress Test: report reviewed Echo: report reviewed Cardiac cath: report reviewed - EKG Interpretation EKG results cardiology: personally reviewed, sinus rhythm, left bundle branch block (Known history of left bundle branch block) Consult Discharge Plan - Plan Referrals: Debbie May MD [Primary Care Provider] - <Cassi Good - Last Filed: 01/18/18 11:19> Date of Encounter: 01/18/18 - Attending Attestation I have personally performed a face to face evaluation on this patient. I have reviewed and agree with the care plan. History and Exam by me shows: 72 YOM with known CAD s/p PCI of the proximal LAD, non obstructive CAD otherwise. Recent stress negative for ischemia with preserved EF but patient continues to have atypical chest pain. [facility] R/B/A discussed with patient and he agrees to proceed. . Assessment and Plan Discussion w patient/family: The assessment and plan as outlined above was discussed with the patient and/or family members who expressed understanding and agreement. All questions were answered. Thank you for involving us in the care of your patient. Please call with any questions. History of Present Illness History of present illness: Mr. Patel is a 72 year old male All Systems Review: The remainder of the systems were reviewed and are negative Physical Examination Vital Signs, Last 4 Hours Temp Pulse Resp BP Pulse Ox 01/18/18 10:56 97.7 F 70 16 111/66 94 Results 01/17/18 02:08 01/17/18 02:08
[2018-01-17] MEDS ORDERED: Isosorbide MONOnitrate (24 HR) 30 MG TAB.ER.24H PO ONE (09:41)
--- NOTE | 2018-01-17 11:23 | Internal Med Progress Note ---
Date of Encounter: 01/17/18 Time of Encounter: 11:23 - Assessment and plan (1) Chest pain, rule out acute myocardial infarction Current Visit: Yes Status: Acute Assessment and plan: Seen by cardiology- he undergo LHC in AM NPO after midnight Nitroglycerin as need for CO Imdur increased per cardiology (2) HTN (hypertension) Current Visit: No Status: Chronic Assessment and plan: BP controlled, continue home medications. Qualifiers: Hypertension type: essential hypertension Qualified Code(s): I10 - Essential (primary) hypertension (3) HLD (hyperlipidemia) Current Visit: No Status: Chronic Assessment and plan: Continue statins. Qualifiers: Hyperlipidemia type: pure hypercholesterolemia Qualified Code(s): E78.00 - Pure hypercholesterolemia, unspecified; E78.0 - Pure hypercholesterolemia (4) GERD (gastroesophageal reflux disease) Current Visit: No Status: Chronic Assessment and plan: Continue home medication. Qualifiers: Esophagitis presence: esophagitis presence not specified Qualified Code(s) : K21.9 - Gastro-esophageal reflux disease without esophagitis (5) Diabetes Current Visit: No Status: Chronic Assessment and plan: Hold all medication for diabetes, started patient on insulin sliding scale. 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 transplanted heart: [place] heart Associated angina: with stable angina Qualified Code(s): I25.118 - Atherosclerotic heart disease of [place] coronary artery with other forms of angina pectoris - Time Spent With Patient Total time spent is greater than 50% in coordination of care (as documented) at patient's floor/unit and/or counseling patient: - Subjective Interval history: Patient seen and examined at bedside. He does have some chest pain described as heaviness 4/10, EKG obtained has LLB which is on old EKG. Seen by cardiology anticipate LHC in am. Discussed with patient who verbalizes understanding. - Constitutional Vitals: Temp Pulse Resp BP Pulse Ox 98.3 F 64 15 104/62 93 01/17/18 11:09 01/17/18 11:09 01/17/18 11:09 01/17/18 11:09 01/17/18 11:09 General appearance: Present: A&O X 3 - Head Head exam: Present: atraumatic, normocephalic - Eye Eye exam: Present: PERRL, conjuntiva pink, sclera anicteric Pupils: Present: PERRL - Neck Neck exam general surgery: Present: supple, trachea midline. Absent: lymphadenopathy - Respiratory Respiratory exam: Present: CTAB. Absent: accessory muscle use, rales, rhonchi, wheezes - Cardiovascular Cardiovascular exam: Present: RRR, +S1, +S2. Absent: diastolic murmur, gallop, rubs, systolic murmur - GI/Abdominal GI/Abdominal exam: Present: normal bowel sounds, soft, no peritoneal signs. Absent: distended, tenderness - Extremities Exam Extremities exam: Present: warm, radial pulses palpable and symmetrical. Absent : calf tenderness, cyanotic, pedal edema - Neurological Exam Neurological exam: Present: CN II-XII intact, oriented X3, no focal deficits. Absent: pronater drift, facial droop, speech deficit - Skin Skin exam: Present: dry, intact Internal Medicine: Result - Labs CBC & Chem 7: 01/17/18 02:08 01/17/18 02:08 Labs: Short CBC 01/17/18 Range/Units 02:08 WBC 8.7 (4.3-11.1) K/mcL Hgb 12.3 L D (12.9-16.9) g/dL Hct 36.9 L (37.5-50.1) % Plt Count 286 (140-400) K/mcL Neutrophils # 5.3 (1.6-8.9) K/mcL BMP 01/17/18 02:08 Sodium 137 Potassium 3.9 Chloride 106 Carbon Dioxide 23 BUN 13 Creatinine 1.23 Glucose 155 H Calcium 8.8 Cardiac Enzymes 01/16/18 01/17/18 Range/Units 19:39 02:08 Troponin I < 0.03 < 0.03 (< 0.04) ng/mL Consult Discharge Plan - Plan Referrals: Debbie May MD [Primary Care Provider] -
[2018-01-18] MEDS ORDERED: *HR* Morphine 2 MG/ML SYRINGE IVP ONE ×2 (06:57→10:15)
[2018-01-18] MEDS: Insulin LISPRO 300 UNITS/3 ML VIAL SQ SCH ×4 (07:18→20:17)
[2018-01-18] MEDS: *HR* Heparin 5,000 UNIT/ML VIAL SQ SCH ×3 (07:41→22:56)
[2018-01-18] MEDS: Fenofibrate 54 MG TABLET PO SCH (07:41)
[2018-01-18] MEDS: Isosorbide MONOnitrate (24 HR) 30 MG TAB.ER.24H PO SCH (07:41)
[2018-01-18] MEDS: Aspirin Enteric Coated 81 MG Tablet PO SCH (07:41)
[2018-01-18] MEDS: Ondansetron 4 MG/2 ML VIAL IVP PRN ×2 (07:44→14:59)
--- NOTE | 2018-01-18 08:13 | Event Note ---
Date of Encounter: 01/18/18 Time of Encounter: 08:30 - Cardiology Event Note Laboratory Tests 01/16/18 01/16/18 01/17/18 13:53 19:39 02:08 Creatinine 1.23 Est GFR (Non-Af Amer) 58 L Troponin I < 0.03 < 0.03 < 0.03 Patient reports chest pain symptoms resolved yesterday, however returned this morning with complaint of 7 out of 10 midsternal chest heaviness improved with IV morphine now down to 3 out of 10. Nasal oxygen reapplied. Patient appears clinically stable. Plan for catheterization today.
[2018-01-18] MEDS ORDERED: Ondansetron 4 MG/2 ML VIAL IVP ONE (15:23)
--- NOTE | 2018-01-18 15:31 | Internal Med Progress Note ---
Date of Encounter: 01/18/18 Time of Encounter: 15:26 - Assessment and plan (1) Chest pain, rule out acute myocardial infarction Current Visit: Yes Status: Acute Assessment and plan: Presented with chest pain 2 weeks. Was recently seen and worked up for chest pain rule out. Negative stress at that time. Sent home with increased dose of Imdur. History of prior GA in 2007, on aspirin, statin, Coreg and ELÍAS inhibitor as well as Imdur Recent TTE 12/30/17 with LVEF of 45%, mildly dilated left ventricle, bundle branch block, mild global left ventricular systolic dysfunction, mild left ventricular diastolic dysfunction and no significant valvular dysfunction. Continuing to have left-sided chest pain with radiation to the epigastrium and right side as well as midback. Cardiology following-plan undergo left heart catheter this afternoon. (2) CAD (coronary artery disease) Current Visit: No Status: Chronic Assessment and plan: ASA BB Statin nitrates cont cardiac monitoring See above Qualifiers: Coronary Disease-Associated Artery/Lesion type: [place] artery [place] vs. transplanted heart: [place] heart Associated angina: with stable angina Qualified Code(s): I25.118 - Atherosclerotic heart disease of [place] coronary artery with other forms of angina pectoris (3) HTN (hypertension) Current Visit: No Status: Chronic Assessment and plan: Blood pressure stable, continue home medications. Qualifiers: Hypertension type: essential hypertension Qualified Code(s): I10 - Essential (primary) hypertension (4) HLD (hyperlipidemia) Current Visit: No Status: Chronic Assessment and plan: History of HLD, continue statin Qualifiers: Hyperlipidemia type: pure hypercholesterolemia Qualified Code(s): E78.00 - Pure hypercholesterolemia, unspecified; E78.0 - Pure hypercholesterolemia (5) GERD (gastroesophageal reflux disease) Current Visit: No Status: Chronic Assessment and plan: Continue home medications. Qualifiers: Esophagitis presence: esophagitis presence not specified Qualified Code(s) : K21.9 - Gastro-esophageal reflux disease without esophagitis (6) Diabetes Current Visit: No Status: Chronic Assessment and plan: History of diabetes, sliding scale insulin coverage, continue to closely monitor. Blood glucose stable per today's labs. Qualifiers: Diabetes mellitus type: type 2 Diabetes mellitus termination clerk insulin use: without group home use Diabetes mellitus complication status: with unspecified complications Qualified Code(s): E11.8 - Type 2 diabetes mellitus with unspecified complications - Time Spent With Patient Total time spent is greater than 50% in coordination of care (as documented) at patient's floor/unit and/or counseling patient: 25 - 35 minutes - Subjective Interval history: Patient presented for chest pain rule out. Was recently treated for chest pain at [facility]. Underwent cardiac stress 12/31/17. Negative for ischemia. Continue to have chest pain after discharge as well as intermittent nausea. Continue to endorse left-sided chest pain with radiation to the epigastrium and mid back. - Constitutional Vitals: Temp Pulse Resp BP Pulse Ox 97.8 F 63 16 111/66 95 01/18/18 14:58 01/18/18 14:58 01/18/18 14:58 01/18/18 14:58 01/18/18 14:58 General appearance: Present: A&O X 3 - Head Head exam: Present: atraumatic, normocephalic - Eye Eye exam: Present: PERRL, conjuntiva pink, sclera anicteric Pupils: Present: PERRL - Neck Neck exam general surgery: Present: supple, trachea midline. Absent: lymphadenopathy - Respiratory Respiratory exam: Present: CTAB. Absent: accessory muscle use, rales, rhonchi, wheezes - Cardiovascular Cardiovascular exam: Present: RRR, +S1, +S2. Absent: diastolic murmur, gallop, rubs, systolic murmur - GI/Abdominal GI/Abdominal exam: Present: normal bowel sounds, soft, no peritoneal signs. Absent: distended, tenderness - Extremities Exam Extremities exam: Present: warm, radial pulses palpable and symmetrical. Absent : calf tenderness, cyanotic, pedal edema - Neurological Exam Neurological exam: Present: CN II-XII intact, oriented X3, no focal deficits. Absent: pronater drift, facial droop, speech deficit - Skin Skin exam: Present: dry, intact Internal Medicine: Result - Labs CBC & Chem 7: 01/17/18 02:08 01/17/18 02:08 Consult Discharge Plan - Plan Referrals: Debbie May MD [Primary Care Provider] -
--- NOTE | 2018-01-18 16:28 | Event Note ---
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 Discussed with patient and family and apologies given for inconvenience. Re-assurance given. Discussed with cardiology team. No high risk findings during this stay, no urgent need for LHC. Okay to give cardiac diet. NPO after midnight for LHC tomorrow. Patient agrees with plan.
--- NOTE | 2018-01-19 06:54 | Electrocardiograph Report ---
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
--- NOTE | 2018-01-19 07:06 | Electrocardiograph Report ---
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
[2018-01-19] MEDS: Insulin LISPRO 300 UNITS/3 ML VIAL SQ SCH ×2 (07:44→11:18)
[2018-01-19] MEDS: *HR* Heparin 5,000 UNIT/ML VIAL SQ SCH (08:34)
[2018-01-19] MEDS: Aspirin Enteric Coated 81 MG Tablet PO SCH (08:34)
[2018-01-19] MEDS: Isosorbide MONOnitrate (24 HR) 30 MG TAB.ER.24H PO SCH (08:35)
[2018-01-19] MEDS: Fenofibrate 54 MG TABLET PO SCH (08:35)
[2018-01-19] MEDS: Ondansetron 4 MG/2 ML VIAL IVP PRN (10:33)
[2018-01-19] MEDS ORDERED: ISOVUE-370 200 ML INFUS..BTL IV ONE (10:39)
[2018-01-19] MEDS ORDERED: Heparin 1,000 UNITS/500 mL 500 ML ONE (10:39)
[2018-01-19] MEDS ORDERED: *HR* Heparin 10,000 UNIT/10 ML VIAL ONE (10:39)
[2018-01-19] MEDS ORDERED: 0.9 % Sodium Chloride 1,000 ML ONE ×2 (10:40→10:56)
[2018-01-19] MEDS ORDERED: *HR* Midazolam HCl 2 MG/2 ML VIAL ONE (11:01)
[2018-01-19] MEDS ORDERED: *HR* FentaNYL (PF) 100 MCG/2 ML VIAL ONE (11:01)
--- NOTE | 2018-01-19 11:38 | Pre-Sedation Evaluation ---
Pre-sedation evaluation - Pre-sedation checklist Date of procedure: 01/18/18 Procedure: C Recent Vitals: Last Vital Signs Temp 97.5 F L 01/19/18 06:47 Pulse 66 01/19/18 06:47 Resp 16 01/19/18 06:47 BP 129/68 01/19/18 06:47 Pulse Ox 95 01/19/18 06:47 Previous reaction to sedatives/anesthetics: No Dietary Status: NPO after Midnight Airway Assessment: Patient can open mouth completely, TMJ function normal ASA Classification *see protocol: CLASS II-Mild systemic disease Plan of Care: Pt appropriate candidate for procedure/moderate/conscious sedation , Risks/benefits of procedure/sedation discussed w/ patient/family
--- NOTE | 2018-01-19 12:34 | Invasive Diagnostic Lab Proc ---
Name: Bryan Patel Date of Study: 01/19/2018 Date: 1945 Ht: 70.1in Medical Record#: [id number] Age: 72 Wt: 213.85lb Gender: Male BSA: 2.15 Order #: [id number] BMI: 30.61 Physicians Procedure Physician: Tony Smith MD, [facility] Referring MD: Referring MD: Staff Name Position Time In Sites, Chandni RT (R) Scrub 10:58 AM Leila Trotter RN Brand Advocate 10:59 AM Jensen Wilson RN Monitor 10:59 AM Indications Indication Unstable Angina Procedures Performed Procedure L HRT ARTERY/VENTRICLE ANGIO Pre-Procedure Checklist Informed consent is complete signed and on chart. H&P is on chart. ID band is on and ID verified with patient. Patient NPO for procedure The procedure was described for the patient and questions were answered. ECG is on chart. Plan of Care Patient will tolerate the procedure without complications. Adequate level of comfort will be maintained. Hemodynamics will remain stable Patient will recover from procedure without complications. Respiratory function will be maintained. Cardiac rhythm will remain stable. Patient temperature will be maintained. Patient and/or family have verbalized understanding of the procedure. Patient Education Chief Complaint/Reason for Test: Cardiac Cath Developmental Category: Geriatric (65+ years) Developmentally Appropriate for Age: Yes Learning Barriers: None Education Needs: Procedure Education Method: Verbal Information Taught: Cardiac Cath Educational Evaluation: Able to repeat information Intravenous Access Time IV Size Location DC'd Fluid/Drip Rate Units RN 20g 1 /" Patent On Arrival 0.9NaCl ml/hr Allergies simvastatin NONE KNOWN Vital Signs Time BP (mmHg) HR (bpm) O2 Sat. RR (bpm) LOC 11:40 AM / % 5 = Fully awake and oriented or at pre-proc level 11:41 AM 138 / 70 64 96 % 11 11:45 AM 132 / 85 106 96 % 15 11:50 AM 109 / 51 66 92 % 25 11:55 AM 115 / 62 71 93 % 20 12:00 PM 109 / 56 71 90 % 19 12:05 PM 120 / 57 69 92 % 19 12:10 PM 122 / 61 69 93 % 22 Procedural Medications Time Medication Dose Units Method Given By 11:52 AM Versed 2 mg Intravenous Leila Trotter RN 11:52 AM Fentanyl 50 mcg Intravenous Leila Trotter RN 11:53 AM Oxygen 2 L/min nasal cannula Leila Trotter RN 11:55 AM Lidocaine 2% 1 ml Subcutaneous Tony Smith MD, [facility] 11:56 AM Heparin 4000 units Nitroglycerin 200 mcg Verapamil 2.5 mg Intraarterial Tony Smith MD, [facility] ASA Classification: CLASS II- Mild systemic disease (i.e. well-controlled diabetes, hypertension, asthma, cigarette smoking) Janis Score Preprocedure Postprocedure Activity 2- Moves 4 extremities sustained head lift Activity 2- Moves 4 extremities sustained head lift Circulation 2- SBP +/= 20 points of pre-anesthetic level Circulation 2- SBP +/= 20 points of pre-anesthetic level Consciousness 2- Awake and alert oriented x 3 Consciousness 2- Awake and alert oriented x 3 O2 Saturation 2- Able to maintain O2 satruation of 92% on room air O2 Saturation 2- Able to maintain O2 satruation of 92% on room air Respiratory 2- Able to deep breathe and cough well Respiratory 2- Able to deep breathe and cough well Total Score 10 Total Score 10 Contrast Agent: Isovue Diagnostic Contrast: 58 ml Total Contrast: 58 ml Fluoro Dose: 333 mGy Procedure Log Time Note Enter By 10:51 AM CathStat 10:57 AM 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 [place] 10:59 AM Patient charges- Angio tray pack, Navilyst 3mm J, Pulse Oximetry and ACIST tubing and transducer [place] 11:17 AM Case Delayed Previous case ran long [place] 11:37 AM Physician arrived 11:37 [place] 11:37 AM Kristian and humberto completed [place] 11:37 AM Sign in performed according to hospital policy. [place] 11:37 AM Procedure start 11:37 [place] 11:37 AM Case Start 11:37 AM [ Start or Stop Vital ] 11:39 AM Vitals capture started with the following parameters, Patient=Adult, Interval=5 min, Initial Kttfzuhi=933 mmHg, Deflation Rate=3 mmHg, Cuff placed on Right Arm 11:40 AM Time: 11:40 Patient comfortable and pain free: Yes [place] 11:40 AM Time: 11:40LOC: 5 = Fully awake and oriented or at pre-proc level [place] 11:40 AM Clinical Presentation: Unstable angina [place] 11:41 AM Recorded ECG: HR=64 Condition=Condition 1 11:41 AM HR=64 bpm, UWUN=145/70 mmhg, SpO2=96.0 %, Resp=11 B/min, Comment=nsr 11:45 AM XL=306 bpm, ZBHY=634/85 mmhg, SpO2=96.0 %, Resp=15 B/min 11:50 AM HR=66 bpm, MREA=742/51 mmhg, SpO2=92.0 %, Resp=25 B/min, Comment=nsr 11:52 AM ASA Class CLASS II- Mild systemic disease (i.e. well-controlled diabetes, hypertension, asthma, cigarette smoking) [place] 11:52 AM Time: 11:52 Versed 2 mg Intravenous Given by Leila Trotter RN [place] 11:52 AM Time: 11:52 Fentanyl 50 mcg Intravenous Given by Leila Trotter RN [place] 11:53 AM Time: 11:53 Oxygen on at 2 L/min per nasal cannula by Leila Trotter RN [place] 11:55 AM Time out performed according to hospital policy [place] 11:55 AM HR=71 bpm, SFXC=269/62 mmhg, SpO2=93.0 %, Resp=20 B/min 11:55 AM Time: 11:55 1 ml Lidocaine 2% to right radial Subcutaneous Given by Tony Smith MD, [facility] c[place] 11:56 AM Access obtained by percutaneous puncture. 5/6Fr 10cm Terumo Glidesheath sheath placed in right Radial artery. [id number] c[place] 11:56 AM Time: 11:56 Patient given 4,000 units Heparin, 200 mcg Nitroglycerin, and 2.5 mg Verapamil Intraarterial by Tony Smith MD, FAC. This is given to reduce risk of vessel spasm and thrombosis. [place] 11:57 AM 5Fr TIG catheter inserted over the wire [facility] ced[place] 11:59 AM LCA angiography performed in multiple views. [place] 12:00 PM Catheter removed [place] 12:00 PM HR=71 bpm, MDGG=912/56 mmhg, SpO2=90.0 %, Resp=19 B/min 12:01 PM 5Fr 3DRC catheter inserted over the wire [id number] c[place] 12:02 PM Coronary Dominance: Co-dominant ced[place] 12:02 PM Recorded Pressure: Ao, HR=74, Condition=Condition 1 (Aorta) Ao 95/56/71 12:02 PM RCA angiography performed in multiple views. [place] 12:03 PM Catheter removed [place] 12:03 PM 5Fr Pigtail catheter inserted over the wire [facility] cedwards 12:04 PM Catheter selectively placed in left ventricle ced[place] 12:04 PM Bolus angiogram of left Ventricle complete: 10 ml/sec for a total of 20 mls ced[place] 12:05 PM HR=69 bpm, OVBR=323/57 mmhg, SpO2=92.0 %, Resp=19 B/min 12:06 PM Recorded Pressure: LV, HR=70, Condition=Condition 1 (Left Ventricle) LV 103/3/26 12:06 PM Recorded Pressure: LV, Ao, HR=66, Condition=Condition 1 (Left Ventricle) LV 112/4/56, (Aorta) Ao 111/60/79 12:07 PM Catheter removed [place] 12:10 PM Procedure completed at 12:09 ced[place] 12:10 PM Did you address NAEEM flow and Dominance? Yes c[place] 12:10 PM HR=69 bpm, QDDI=609/61 mmhg, SpO2=93.0 %, Resp=22 B/min 12:10 PM Sign out completed: Radiation Dose 332.84 mGy Fluoro Time: 3.2 Isovue 370 - 200ml contrast 58.5 ml given by Tony Smith MD, [facility]. Complications: NoneCardiac Rehab Consult needed: NoConfirmed administered medications: Yes c[place] 12:10 PM Isovue 370 - 200ml,1 Bottle(s) used. c[place] 12:10 PM 11 ml air in Vasc Band. c[place] 12:11 PM Estimated Blood Loss: minimal c[place] 12:11 PM Post ECG NSR [place] 12:11 PM Information taught Cardiac Cath [place] 12:11 PM Education needs Procedure, Plan of Care, and Responsibilities of Patient in Care c[place] 12:11 PM Learning barriers :None c[place] 12:12 PM Education Methods Verbal [place] 12:12 PM Education evaluation Able to repeat information [place] 12:12 PM Site status No bleeding/hematoma - Rt Arm as reported by Sites, Chandni RT (R) at 12:12 [place] 12:13 PM Report given to Carmela BUNCH Pt taken to 3B Room #34. 12:12 [place] 12:13 PM Plavix, Effient or Brilinta given No c[place] 12:13 PM Patient out of room: 12:13 ced[place] 12:13 PM Family not available [place] 12:14 PM Fluoro Time: 3.2 cedwards 12:14 PM Isovue 370 - 200ml contrast 58.[address] Smith. [place] 12:14 PM Radiation Dose 332.84 mGy [place] 12:14 PM Lesion found in Proximal RCA. Pre Stenosis: 20 Pre NAEEM Flow: c[place] 12:15 PM Lesion found in Proximal LMCA. Pre Stenosis: 20 Pre NAEEM Flow: [place] 12:15 PM Lesion found in Proximal LAD. Pre Stenosis: 20 Pre NAEEM Flow: c[place] 12:15 PM Lesion found in 1st Marginal. Pre Stenosis: 20 Pre NAEEM Flow: ced[place] 12:16 PM Lesion found in Ramus. Pre Stenosis: 50 , small vessel ced[place] 12:25 PM 12:24 Post Pulses Bilateral DP & PT 1+ ced[place] 12:25 PM 12:25 Post Pulses Rt Radial 2+ ced[place] Complications Complication None Hemodynamics Pressures Site Systolic/A Wave Diastolic/V Wave Mean AO 95 56 71 LV 103 3 26 LV 112 4 56 AO 111 60 79 Post Procedure Information Rhythm: NSR Site Checks Time Location Status Staff Sheath In? Note 12:12 PM Rt Arm No bleeding/hematoma Sites, Chandni RT (R) Pulses Time Site Pre-Procedure Post-Procedure Note Bilateral DP & PT 1+ Bilateral radial 2+ 12:24:00 PM Bilateral DP & PT 1+ 12:25:00 PM Rt Radial 2+ Updated by Jensen Wilson RN on 01/19/2018 12:26:32 PM electronically signed on 01/19/2018 12:27:49 PM with status of Final
--- NOTE | 2018-01-19 13:23 | Internal Med Progress Note ---
Date of Encounter: 01/19/18 Time of Encounter: 13:23 - Assessment and plan (1) Chest pain, rule out acute myocardial infarction Current Visit: Yes Status: Acute (2) CAD (coronary artery disease) Current Visit: No Status: Chronic Qualifiers: Coronary Disease-Associated Artery/Lesion type: [place] artery [place] vs. transplanted heart: [place] heart Associated angina: with stable angina Qualified Code(s): I25.118 - Atherosclerotic heart disease of [place] coronary artery with other forms of angina pectoris (3) HTN (hypertension) Current Visit: No Status: Chronic Qualifiers: Hypertension type: essential hypertension Qualified Code(s): I10 - Essential (primary) hypertension (4) HLD (hyperlipidemia) Current Visit: No Status: Chronic Qualifiers: Hyperlipidemia type: pure hypercholesterolemia Qualified Code(s): E78.00 - Pure hypercholesterolemia, unspecified; E78.0 - Pure hypercholesterolemia (5) GERD (gastroesophageal reflux disease) Current Visit: No Status: Chronic Qualifiers: Esophagitis presence: esophagitis presence not specified Qualified Code(s) : K21.9 - Gastro-esophageal reflux disease without esophagitis (6) Diabetes Current Visit: No Status: Chronic Qualifiers: Diabetes mellitus type: type 2 Diabetes mellitus intermediate insulin use: without salvage determiner use Diabetes mellitus complication status: with unspecified complications Qualified Code(s): E11.8 - Type 2 diabetes mellitus with unspecified complications - Time Spent With Patient Total time spent is greater than 50% in coordination of care (as documented) at patient's floor/unit and/or counseling patient: - Subjective Interval history: Patient presented for chest pain rule out. Was recently treated for chest pain at [facility]. Underwent cardiac stress 12/31/17. Negative for ischemia. Continue to have chest pain after discharge as well as intermittent nausea. Continue to endorse left-sided chest pain with radiation to the epigastrium and mid back. - Constitutional Vitals: Temp Pulse Resp BP Pulse Ox 97.5 F L 66 16 129/68 95 01/19/18 06:47 01/19/18 06:47 01/19/18 06:47 01/19/18 06:47 01/19/18 06:47 General appearance: Present: A&O X 3 - Head Head exam: Present: atraumatic, normocephalic - Eye Eye exam: Present: PERRL, conjuntiva pink, sclera anicteric Pupils: Present: PERRL - Neck Neck exam general surgery: Present: supple, trachea midline. Absent: lymphadenopathy - Respiratory Respiratory exam: Present: CTAB. Absent: accessory muscle use, rales, rhonchi, wheezes - Cardiovascular Cardiovascular exam: Present: RRR, +S1, +S2. Absent: diastolic murmur, gallop, rubs, systolic murmur - GI/Abdominal GI/Abdominal exam: Present: normal bowel sounds, soft, no peritoneal signs. Absent: distended, tenderness - Extremities Exam Extremities exam: Present: warm, radial pulses palpable and symmetrical. Absent : calf tenderness, cyanotic, pedal edema - Neurological Exam Neurological exam: Present: CN II-XII intact, oriented X3, no focal deficits. Absent: pronater drift, facial droop, speech deficit - Skin Skin exam: Present: dry, intact Internal Medicine: Result - Labs CBC & Chem 7: 01/17/18 02:08 01/17/18 02:08 Consult Discharge Plan - Plan Referrals: Debbie May MD [Primary Care Provider] - 01/21/18 9:30 am
--- NOTE | 2018-01-19 14:11 | Discharge Summary ---
- NOTES TO OUTPATIENT PROVIDER Notes to Outpatient Provider: Patient presented with chest pain and epigastric pain. ACS rule out completed, workup found to be negative. Left heart catheter completed finding only minimal occlusive disease with 20% coronary artery occlusion. Pain is primarily epigastric and left upper quadrant and reproducible to palpation. Patient instructed to follow-up with PCP. Patient will benefit from a follow-up appointment with gastroenterology for further evaluation. Orders not resulted at time of discharge: Pending orders 01/19/18 10:47 CL Cardiac Catheterization [CL] Routine Date of Encounter: 01/19/18 Time of Encounter: 14:09 - Discharge Diagnosis (1) Chest pain, rule out acute myocardial infarction Priority: Primary Status: Acute Assessment and Plan: Presented with chest pain 2 weeks. Was recently seen and worked up for chest pain rule out. Negative stress at that time. Sent home with increased dose of Imdur. Continued to have chest pain. History of prior DE in 2007, on aspirin, statin, Coreg and ELÍAS inhibitor as well as Imdur Recent TTE 12/30/17 with LVEF of 45%, mildly dilated left ventricle, bundle branch block, mild global left ventricular systolic dysfunction, mild left ventricular diastolic dysfunction and no significant valvular dysfunction. Underwent LHC on 01/19/18, only finding minimal occlusive disease 20% stenosis. Chest pain does not appear to be cardiac origin. Consider causes of chest discomfort as well as any cardiac Patient reporting epigastric and upper quadrant discomfort, possible gastrointestinal cause Increased dose of PPI prior to discharge Instructed to follow-up with PCP within 1 week of discharge Additionally, patient is to follow-up with gastroenterology for further evaluation He has had an uneventful hospital course, remains medically stable throughout the stay, stable for discharge today. (2) CAD (coronary artery disease) Priority: Secondary Status: Chronic Assessment and Plan: Continue cardiac medications upon discharge Qualifiers: Coronary Disease-Associated Artery/Lesion type: kiana artery [place] vs. transplanted heart: kiana heart Associated angina: with stable angina Qualified Code(s): I25.118 - Atherosclerotic heart disease of kiana coronary artery with other forms of angina pectoris (3) HTN (hypertension) Priority: Secondary Status: Chronic Assessment and Plan: Blood pressure stable, continue home medications upon discharge Qualifiers: Hypertension type: essential hypertension Qualified Code(s): I10 - Essential (primary) hypertension (4) HLD (hyperlipidemia) Priority: Secondary Status: Chronic Assessment and Plan: History of HLD, continue statin Qualifiers: Hyperlipidemia type: pure hypercholesterolemia Qualified Code(s): E78.00 - Pure hypercholesterolemia, unspecified; E78.0 - Pure hypercholesterolemia (5) GERD (gastroesophageal reflux disease) Priority: Secondary Status: Chronic Assessment and Plan: Increase PPI dose upon discharge Qualifiers: Esophagitis presence: esophagitis presence not specified Qualified Code(s) : K21.9 - Gastro-esophageal reflux disease without esophagitis (6) Diabetes Priority: Secondary Status: Chronic Assessment and Plan: Resume oral hypoglycemic agents Qualifiers: Diabetes mellitus type: type 2 Diabetes mellitus halfway insulin use: without halfway use Diabetes mellitus complication status: with unspecified complications Qualified Code(s): E11.8 - Type 2 diabetes mellitus with unspecified complications Hospital course: Mr. Patel is a 72 year old male Please see assessment and plan for hospital course Discharge discussed with: patient, family, nurse, change consultant - Time Spent with Patient Total time spent providing and/or coordinating discharge services: Less than 30 minutes - Discharge Medications Home Medications: Aspirin [Lo-Dose Aspirin EC] 81 mg PO DAILY 12/29/17 [History] Atorvastatin [Lipitor] 40 mg PO HS 12/29/17 [History] Carvedilol 12.5 mg PO BID 12/29/17 [History] Esomeprazole Magnesium [Nexium] 40 mg PO DAILY 12/29/17 [History] Fenofibrate Nanocrystallized [Tricor] 48 mg PO DAILY 12/29/17 [History] Lisinopril [Zestril] 5 mg PO DAILY 12/29/17 [History] Metformin HCl [Glucophage] 1,000 mg PO BID 12/29/17 [History] Metoclopramide [Reglan] 10 mg PO QIDAC 12/29/17 [History] Tamsulosin HCl [Flomax] 0.4 mg PO DAILY 12/29/17 [History] glipiZIDE [Glucotrol] 5 mg PO DAILY 12/29/17 [History] Sitagliptin Phosphate [Januvia] 50 mg PO DAILY 01/16/18 [History] Allergies/Adverse Reactions: 3 Allergy/AdvReac Type Severity Reaction Status Date / Time simvastatin Allergy Rash Verified 04/07/15 17:29 Date of admission: 01/16/18 15:35 Primary care physician: Debbie May Consults: 01/16/18 16:17 Consult to Cardiology [CONS] Routine Comment: Consulting Provider: [facility] [place] Reason for Consult: chest pain Call Completed: Yes Discharging clinician: Nehemiah Cochran Anticipated date of discharge: 01/19/18 - Constitutional Vitals: Temp Pulse Resp BP Pulse Ox 97.5 F L 66 16 129/68 95 01/19/18 06:47 01/19/18 06:47 01/19/18 06:47 01/19/18 06:47 01/19/18 06:47 General appearance: Present: A&O X 3 - Head Head exam: Present: atraumatic, normocephalic - Eye Eye exam: Present: PERRL, conjuntiva pink, sclera anicteric Pupils: Present: PERRL - Neck Neck exam general surgery: Present: supple, trachea midline. Absent: lymphadenopathy - Respiratory Respiratory exam: Present: CTAB. Absent: accessory muscle use, rales, rhonchi, wheezes - Cardiovascular Cardiovascular exam: Present: RRR, +S1, +S2. Absent: diastolic murmur, gallop, rubs, systolic murmur - GI/Abdominal GI/Abdominal exam: Present: normal bowel sounds, soft, tenderness (Epigastric and left upper quadrant mild tenderness to palpation), no peritoneal signs. Absent: distended - Extremities Exam Extremities exam: Present: warm, radial pulses palpable and symmetrical. Absent : calf tenderness, cyanotic, pedal edema - Neurological Exam Neurological exam: Present: CN II-XII intact, oriented X3, no focal deficits. Absent: pronater drift, facial droop, speech deficit - Skin Skin exam: Present: dry, intact - Patient Status Disposition: Home, Self-Care Condition: Good Overall status at discharge: patient is progressing back to baseline - Discharge Instructions Follow Up With: Debbie May MD [Primary Care Provider] - 01/21/18 9:30 am - Diet and Activity Activity: resume usual activities as tolerated Diet: advance to your usual diet
--- NOTE | 2018-01-19 14:54 | Event Note ---
Date of Encounter: 01/19/18 Time of Encounter: 14:49 - Cardiology Event Note Mr. Patel underwent LHC today that showed minimal CAD. H/o previous stent. Continue asa, statin, and bb. Continue imdur if tolerated. Patient states it did not help his chest pain when added last week. R/o non-cardiac causes of chest pain. Consider GI evaluation, c/o intermittent nausea. Out-pt f/u will be scheduled.
[2018-01-19 16:01] VITALS: BP 125/74
== END 2018-01-19 17:05 | disposition home or self-care (01) | DRG 287 ==
LOC: EMEROO 13:35 → 3BNU 13:35 → OBSVTOIN 15:35 → 3BNU 15:45
PROVIDERS: ADMIT Student in an Organized Health Care Education/Training Program; ATTEND Hospitalist